=== PATIENT | male | born 1950 | race Caucasian/White ===

== ENCOUNTER 2024-04-27 06:24 | Day surgery (SDC) | payer BC, SELFPAY ==
[2024-04-27] VITALS (16 sets, daily range): BP systolic 120–146; BP diastolic 59–91; BMI 25.7
[2024-04-27] MEDS: NSS 230 ML IV (07:04)
--- NOTE | 2024-04-27 07:15 | ITS.CL.CATH ---
Key Cutter - Catheterization
Cardiac Catheterization
Procedure Report:
LEFT HEART CATHETERIZATION
Date of Procedure: April 27, 2024
Referring: Steph King
PROCEDURES:
1. Left heart catheterization, coronary angiogram.
2. Ultrasound-guided access
3. Physiologic functional assessment with IFR of mid left main
4. Intravascular ultrasound assessment of the mid left main
5. Physiologic functional assessment with IFR of ostial second diagonal
6. Physiologic functional assessment with IFR of ostial left circumflex
INDICATION: Curt is a 73-year-old gentleman with past medical history of hyperlipidemia, former smoker, quit 10 years ago, coronary artery disease status post PCI to RCA in May 2022 with IFR negative mid left main 40 to 50% stenosis and moderate
disease in a dual LAD system with 2 diagonals who had 1 episode of significant dyspnea on exertion while climbing uphill few weeks ago and is now being referred for left heart catheterization to rule out obstructive CAD. He has been maintained on
dual antiplatelet therapy with daily baby aspirin and Plavix which she continues and is tolerating well. Most recent echocardiogram from June, with normal biventricular function without regional wall motion abnormalities, LVEF of 60 to 65%.
ACCESS: Right radial artery
HEMODYNAMICS : (mmHg)
AO (s/d) : 96/51
LV (s/d) : 96/4
LVEDP : 15
CORONARY FINDINGS
DOMINANCE: Right
LEFT MAIN: The left main artery is a large-caliber vessel which gives rise to the left anterior descending artery and the left circumflex artery. There is a 60 to 70% stenosis in the mid portion which was negative by IFR but using IVUS imaging, the
minimal luminal area measures less than 6 mm2 (4.3 mm�)
LEFT ANTERIOR DESCENDING: The left anterior descending artery is densely calcified and medium in caliber giving rise to 2 diagonal branches. The first diagonal branch is a small to medium size vessel with mild diffuse atherosclerotic plaque. The
second diagonal branch is a large branching vessel that parallels the true LAD and a dual LAD system. The second diagonal gives rise to 2 lateral branches. The distal LAD becomes a relatively small vessel after giving rise to a large septal
primary counselor. There is a eccentric 80% lesion in the ostium of the second diagonal. The lower branch just after the takeoff of the first small caliber lateral branch is diffusely disease and moderately calcified with up to 60% stenosis.
CIRCUMFLEX: The left circumflex artery is a medium caliber vessel which gives rise to 1 major marginal branch. There is an eccentric ostial 50% stenosis which is IFR negative (iFR 0.97). Otherwise there is mild diffuse atherosclerotic plaque.
RIGHT CORONARY ARTERY: The right coronary artery is a large-caliber, dominant vessel which gives rise to the right posterior descending artery and a large posterolateral system. Previously placed proximal to mid RCA stent is widely patent with 30%
stenosis distal to the stent. There is an additional 50 to 60% lesion in the mid to distal RCA just proximal to the takeoff of the RPDA and the right posterolateral system. The distal right posterolateral system has stable 30% stenosis
HEMODYNAMIC ASSESSMENT OF THE MID LEFT MAIN, ostial left circumflex artery, ostial second diagonal WITH A DigitingO OMNI WIRE: The origin of the left coronary artery was cannulated with a 6 Korean JL 3.5 guide catheter. Intravenous heparin was
administered and the ACT was followed during the procedure. Two hundred micrograms of intracoronary nitroglycerin was given through the guide catheter. A [facility]ni wire was advanced to the guide catheter tip and normalized in the ascending
aorta with disengagement of the guide catheter. The guide catheter was then reengaged and Omni wire was then carefully manipulated across the stenosis in the mid left main with the iFR initially measuring below the ischemic threshold serially
measuring 0.84, 0.84 and 0.83. However upon pullback we noted that there were significant drift in the ascending aorta and therefore the only wire was normalized and we advanced with IFR now within normal range at 0.94, 0.94, above the ischemic
threshold. The Omni wire was then redirected into the obtuse marginal branch to assess moderate lesion in the ostial left circumflex artery which was negative at 0.97. The Omni wire was then pulled back to the guide catheter where the Pd/Pa
measured 1.0 confirming no baseline drift in pressure readings. The Omni wire was then redirected into the second diagonal branch with significant difficulty despite multiple passes with IFR measuring below the ischemic threshold at the ostial
second diagonal serially measuring at 0.85. The Omni wire was then pulled back to the guide catheter where the Pd/Pa measured 1.0 confirming no baseline drift in pressure readings.
Given concern for significant left main disease despite negative IFR, decision was made to proceed with intravascular ultrasound to further assess the mid left main stenosis. A 190 cm 0.014' BMW coronary wire was advanced with some difficulty into
the LAD and IVUS Kiana eye catheter was advanced over this with significant resistance moving past the calcified mid left main stenosis and subsequent failure and being able to do so. IVUS images were recorded at the furthest point where we could
advance the catheter. We then redirected the wire into the left circumflex artery and we attempted with same difficulty advancing past the mid left main calcified stenosis. Upon measuring the minimal luminal area there was significant calcified
lesion measured to be abnormal at less than 6.0mm2 (4.3 mm�)
SEDATION: 95 minutes of procedural sedation was utilized. An independent medical clerk was present to assist with and help manage the patient's level of consciousness and physiologic status.
RADIATION SUMMARY: Fluoro Time (min): 26.0, Dose (mGy): 1639.4, DAP (Gy.cm2) : 114.4
Closure Device: Vascular band over right radial artery, 10 cc every
CONCLUSIONS
1. Significant coronary artery disease involving midportion of the left main (MLA on IVUS of 4.3mm2) and a IFR positive eccentric 80% large ostial diagonal in a dual LAD system (iFR 0.85).
2. IFR negative ostial left circumflex artery eccentric 50% stenosis (iFR 0.97)
3. Previously placed proximal to mid RCA stent is widely patent with 30% stenosis distal to the stent. An additional 50 to 60% stenosis in the mid to distal RCA just proximal to the takeoff of the RPDA and the right posterolateral system.
4. Normal LVEDP.
RECOMMENDATIONS
1. Optimization of medical therapy for underlying significant coronary artery disease and aggressive management of cardiovascular risk factors.
2. Referral to CT surgery for evaluation for possible coronary artery bypass grafting with bypasses to LAD/D2, OM1, distal RCA/RPDA.
3. Eventual referral for outpatient cardiac rehab
Copy to: Steph King
Monica Belle MD, FACC, [facility]
[2024-04-27 08:14] LABS: ACT-LR - POC 339 Seconds (116-155)
[2024-04-27 08:40] LABS: ACT-LR - POC 287 Seconds (116-155)
[2024-04-27] MEDS: NORVASC 2.5 MG PO (09:47)
== END 2024-04-27 12:35 | disposition home or self-care (01) ==
LOC: CATH 06:24
PROVIDERS: ATTENDING PHYSICIAN Internal Medicine Interventional Cardiology; FAMILY PHYSICIAN Physician Assistant Medical; OTHER PHYSICIAN Internal Medicine Cardiovascular Disease
DX: I25.10 Atherosclerotic heart disease of native coronary artery without angina pectoris (principal); R06.09 Other forms of dyspnea; E78.00 Pure hypercholesterolemia, unspecified; K21.9 Gastro-esophageal reflux disease without esophagitis; Z95.5 Presence of coronary angioplasty implant and graft; F17.290 Nicotine dependence, other tobacco product, uncomplicated; Z79.82 Long term (current) use of aspirin; Z79.02 Long term (current) use of antithrombotics/antiplatelets
CPT/HCPCS: 92978; 99153; 99152; C1769; C1894; C1753; 85347; 93458; 93571; 93572; C1876; Q9967

== ENCOUNTER 2024-05-26 05:03 | Inpatient (IN) | payer MEDICARE, BC, SELFPAY ==
[2024-05-15 08:20] VITALS: BMI 24.5
[2024-05-15 09:36] LABS: % Basophils 0.7 % (0-2); % Eosinophils 3.7 % (0-6); % Immature Granulocytes 0.3 % (0-0.5); % Monocytes 7.1 % (1.7-9.3); % Neutrophils 64.2 % (42.2-75.2); Absolute Basophils 0.1 10^3/uL (0-0.2); Absolute Eosinophils 0.3 10^3/uL (0-0.7); Absolute Lymphocytes 1.6 10^3/uL (1.2-3.4); Absolute Monocytes 0.5 10^3/uL (0.1-0.6); Absolute Neutrophils 4.3 10^3/uL (1.4-6.5); Hematocrit 41.7 % (39.0-52.0); Hemoglobin 14.1 g/dL (13.0-18.0); Mean Corp Hgb Conc. 33.8 g/dL (33.0-37.0); Mean Corpuscular Hgb 29.9 pg (27.0-31.0); Mean Corpuscular Volume 88.5 fL (80.0-94.0); Mean Platelet Volume 9.8 fL (7.4-10.4); Nucleated Red Blood Cells % 0 % (-); Platelet Count 250 10^3/uL (130-400); Red Blood Cell Count 4.71 10^6/uL (4.70-6.10); Red Cell Dist. Width 12.3 % (11.5-14.5); Urine Albumin Negative (Neg - Trace); Urine Bilirubin Negative (Negative); Urine Character Clear (Clear); Urine Color Yellow; Urine Glucose Negative (Negative); Urine Ketone Negative (Negative); Urine Leukocyte Negative (Negative); Urine Nitrite Negative (Negative); Urine Occult Blood Negative (Negative); Urine Specific Gravity 1.015 (<1.030); Urine Urobilinogen Negative (Neg - 1+); White Blood Cell Count 6.7 10^3/uL (4.8-10.8)
[2024-05-15 09:46] LABS: APTT 30.9 Sec (23.4-35.0); INR 1.04; PT 13.4 Sec (11.4-14.6)
--- NOTE | 2024-05-15 09:53 | CM ---
Met with Mr. Abbott and his son in [facility] He states prior to admission he resides alone in a single story home at [facility]. He states he has five steps to enter the home. He states prior to admission he was independent with
ambulation and adls. He states he does not have any DME in the home. He states he has a prescription plan and uses [facility]. His son states he will be able to stay with him a few days when he goes home. Also his other son can spend the
night at his house for the first week. His sister resides in the same community so she can check on him also. The discharge plan is to return home with family support and a home visit by the Cardiothoracic Transitional Care Nurse when medically
stable.
We reviewed pre-op and post-op routines. We reviewed the shower instructions. He has the soap,written instruction and the Cardiothoracic Surgery Educational Booklet. We also reviewed restrictions including sternal precautions and driving
restrictions. We discussed a home visit by the Cardiothoracic Transitional Care Nurse. He is agreeable to a home visit.
[2024-05-15 09:57] LABS: ALT (SGPT) 31 U/L (0-50); AST (SGOT) 36 U/L (17-59); Albumin 4.3 g/dl (3.5-5.0); Alkaline Phosphatase 61 U/L (38-126); Blood Urea Nitrogen 15 mg/dl (9-20); Calcium 9.8 mg/dl (8.4-10.2); Carbon Dioxide 28 mmol/L (22-30); Chloride 105 mmol/L (98-107); Direct Bilirubin 0.2 mg/dl (0.0-0.4); Estimated Creatinine Clearance 75 ml/min; Glucose 96 mg/dl (70-99); Potassium 4.9 mmol/L (3.5-5.1); Sodium 140 mmol/L (135-145); Total Bilirubin 0.8 mg/dl (0.2-1.3); Total Protein 6.8 g/dl (6.3-8.2); eGFR > 60.00
[2024-05-15 10:27] LABS: Glycohemoglobin (HgbA1c) 5.6 % (4.0-5.6)
[2024-05-26] VITALS (62 sets, daily range): BP systolic 82–142; BP diastolic 48–80; BMI 24.4
[2024-05-26] MEDS: PROTONIX 40 MG PO (05:32)
[2024-05-26] MEDS: BACTROBAN 2% OINTMENT 1 APPLIC NASAL ×2 (05:33→20:15)
[2024-05-26] MEDS: MAGNESIUM OXIDE 500 MG PO (05:33)
[2024-05-26] MEDS: LOPRESSOR 25 MG PO (05:33)
--- NOTE | 2024-05-26 06:00 | PTCARENOTE ---
pt admitted into room 2265, VS and weight obtained. pt confirms 2 showers @ home and NPO since midnight. admission questions and med rec completed. clip prep and CHG wipes done. ABO drawn and sent. pre-op meds given. son @ bedside.
--- NOTE | 2024-05-26 06:17 | W.CVOR.SURPR ---
CVOR Surgeon Immed Pre Op
-
I have examined this patient prior to performance of the scheduled procedure.
The patient's condition is unchanged from the time of the dictated/written History and
Physical and the patient is able to undergo the scheduled procedure.
CABG +/- EDWIN E
[2024-05-26 07:25] LABS: Urine Albumin Trace (Neg - Trace); Urine Bilirubin Negative (Negative); Urine Character Clear (Clear); Urine Color Yellow; Urine Glucose Negative (Negative); Urine Ketone Negative (Negative); Urine Leukocyte Negative (Negative); Urine Nitrite Negative (Negative); Urine Occult Blood 1+ (Negative); Urine Urobilinogen 1+ (Neg - 1+)
[2024-05-26 07:27] LABS: ACT+ - POC 101 Seconds (82-134)
[2024-05-26 07:30] LABS: B.E. - POC -2.2 mmol/L; Glucose - POC 97 mg/dl (65-99); HCO3 - POC 22 mmol/L (21-29); Hematocrit - POC 35 % PCV (42-52); Hemodilution- POC No; Hemoglobin Calculated - POC 11.9; Ionized Calcium - POC 1.17 mmol/L (1.12-1.27); O2 Saturation %Calculated-POC 99.9 5 (92-96); PCO2 - POC 36 mmHg (35-45); PO2 - POC 333 mmHg (80-100); POC Comment PRE; Potassium - POC 3.4 mmol/L (3.6-5.0); Sodium - POC 145 mmol/L (135-145)
[2024-05-26 07:50] LABS: Urine Squamous Cell 0-2 /LPF (Few)
[2024-05-26 07:51] LABS: Urine White Cell 0-2 /HPF (0-5)
[2024-05-26 09:39] LABS: Glucose - POC 108 mg/dl (65-99); HCO3 - POC 26 mmol/L (21-29); Hematocrit - POC 31 % PCV (42-52); Hemodilution- POC Yes; Hemoglobin Calculated - POC 10.5; Ionized Calcium - POC 0.99 mmol/L (1.12-1.27); PCO2 - POC 33 mmHg (35-45); PO2 - POC 425 mmHg (80-100); POC Comment CPB; Potassium - POC 4.9 mmol/L (3.6-5.0); Sodium - POC 140 mmol/L (135-145); pH - POC 7.51 (7.35-7.45)
[2024-05-26 10:19] LABS: B.E. - POC 1.7 mmol/L; Glucose - POC 111 mg/dl (65-99); HCO3 - POC 25 mmol/L (21-29); Hematocrit - POC 30 % PCV (42-52); Hemodilution- POC Yes; Hemoglobin Calculated - POC 10.1; Ionized Calcium - POC 1.09 mmol/L (1.12-1.27); O2 Saturation %Calculated-POC 99.9 5 (92-96); PCO2 - POC 34 mmHg (35-45); PO2 - POC 262 mmHg (80-100); POC Comment REWARM; Potassium - POC 4.7 mmol/L (3.6-5.0); Sodium - POC 141 mmol/L (135-145); pH - POC 7.47 (7.35-7.45)
[2024-05-26 10:55] LABS: ACT+ - POC 104 Seconds (82-134)
[2024-05-26 10:56] LABS: B.E. - POC 1.3 mmol/L; Glucose - POC 119 mg/dl (65-99); HCO3 - POC 25 mmol/L (21-29); Hematocrit - POC 29 % PCV (42-52); Hemodilution- POC Yes; Ionized Calcium - POC 1.08 mmol/L (1.12-1.27); O2 Saturation %Calculated-POC 99.9 5 (92-96); PCO2 - POC 36 mmHg (35-45); PO2 - POC 264 mmHg (80-100); Potassium - POC 4.7 mmol/L (3.6-5.0); Sodium - POC 143 mmol/L (135-145); pH - POC 7.45 (7.35-7.45)
[2024-05-26 10:58] LABS: B.E. - POC -2.2 mmol/L; Glucose - POC 102 mg/dl (65-99); HCO3 - POC 22 mmol/L (21-29); Hematocrit - POC 27 % PCV (42-52); Hemodilution- POC Yes; Hemoglobin Calculated - POC 9.2; O2 Saturation %Calculated-POC 99.8 5 (92-96); PCO2 - POC 33 mmHg (35-45); PO2 - POC 210 mmHg (80-100); POC Comment POST; Potassium - POC 3.9 mmol/L (3.6-5.0); Sodium - POC 145 mmol/L (135-145); pH - POC 7.43 (7.35-7.45)
[2024-05-26 11:19] LABS: ACT+ - POC > 1003 Seconds (82-134)
[2024-05-26 11:19] LABS: ACT+ - POC > 1003 Seconds (82-134)
[2024-05-26 11:19] LABS: ACT+ - POC > 1003 Seconds (82-134)
--- NOTE | 2024-05-26 11:37 | W.PN.CT.SURG ---
CT Surgery Operative Note
-
CARDIAC SURGERY OPERATIVE REPORT
Preoperative Diagnosis: Multivessel Coronary Artery Disease with shortness of breath and fatigue, anginal equivalent
Postoperative Diagnosis: Same
Procedure(s) Performed:
1. Standard sternotomy with aortic and right atrial cannulation
2. Coronary artery bypass grafting x 4 (In situ SIMMONS to LAD sequential to distal bifurcation�diagonal, Ao to RSVG to OM, Ao to RSVG to distal RCA)
3. Small segment of the JOE harvested
4. Endoscopic vein harvesting of left lower extremity
5. Transesophageal echocardiography
6. Placement of temporary ventricular pacing wire
Date of Surgery: 05/26/2024
Comorbidities:
1. Multivessel coronary artery disease
2. Hyperlipidemia
3. Hypertension
4. Former smoker
5. GERD
6. History of COVID-19 and pneumonia
Attending Surgeon: Carl Gallardo MD, MS
Assistants: Tiffani Petty PA-C (present and necessary to web production assistant, retraction, suction, exposure, suture management, and wound closure under my direction)
Anesthesiology: Marcos Zheng MD and Carolann Ibanez CRNA
Scrub and Circulating RNs: Christopher Weston, JOANA, Nayeli Hopper RN
Lithographer Apprentice: Valerie Burroughs CCP
Anesthesia: GETA
EBL: per perfusion records
Products: None
CPB Time: 96 minutes
Aortic Cross Clamp Time: 81 minutes
Indication(s) for Procedures: This is a 73-year-old male with significant coronary disease with IVUS proven mid left main and LAD disease. He also presented with anginal equivalent symptoms. He was offered coronary artery revascularization after
reviewing his STS score. Due to the distal bifurcation with LAD and to a diagonal branch, the plan is to sequential the graft to the distal portion. He accepted the risk for surgery and so we proceeded.
Conduit(s) Quality:
SIMMONS -excellent/good quality visual flow in the distal branch as well as the midportion of the LAD after removal of the bulldog clamp
RSVG -good/some thickening of the distal end however overall good quality with relative uniformity
Target(s) Quality:
RCA -excellent/even though it was heavily calcified, lumen was able to be identified. Had at least 60 cc a minute of flow at a pressure of 80 mmHg with test dosing of antegrade
OM -excellent/also heavily calcified however there was at least 60 cc a minute of flow at a pressure of 9200 mmHg with test dosing of antegrade
mLAD and dLAD - Good / smaller target, but able to accomodate a 1.5mm probe. Good visual flow in the distal branch as well as the main LAD proper with release of the bull dog. The SIMMONS was used as a sequential graft at the mid portion to the distal
diagonal branch
Findings: His left ventricular ejection fraction preoperatively was 60% with no regional wall motion abnormalities. He had no significant valvular disease. EF after surgery remained the same at 60% with no new regional wall motion abnormalities.
The SIMMONS was harvested in a skeletonized fashion just past the bifurcation. I also preemptively harvested a very small segment of the JOE in case the SIMMONS was unable to reach the distal diagonal branch. Following bypass grafting, test dose
cardioplegia was given down each distal and confirmed patency and hemostasis. Each distal was probed both proximally and distally to confirm disease and patency, respectively. No products were given, no inotropes were used. No Imlay was placed. He
was in sinus rhythm and did not require any pacing.
Description of Procedure: The patient was taken to the operating room. Their identity and procedure to be performed were verified and they were positioned supine on the operating table. Induction via general anesthesia with endotracheal intubation
was performed and central venous access and arterial monitoring were inserted. A preoperative transesophageal echocardiogram was performed to assess cardiac function and valvular function. The patient was then prepped and draped from chin to feet in
a sterile fashion. A preoperative time-out was performed with all members of the team present. A midline chest incision was performed along with median sternotomy. Simultaneous endoscopic access of the left lower extremity for saphenous vein harvest
was obtained along with administration of an initial 5,000 units of IV heparin. A RulTract sternal retractor was positioned to exposure the left internal mammary bed. The mammary was harvested and found to have good flow. A bulldog clamp was applied
to the distal end of the mammary after dividing it. It was wrapped in a papaverine soaked RayTec and replaced back into the left hemithorax. I then replaced the Rultract retractor at the right hemisternum and harvested a very small 3.5 cm segment
of JOE in case needed to do a composite graft to the distal diagonal branch. The RulTract was exchanged for a median sternal retractor. The innominate vein was isolated. Full heparinization was given (a total of 45,000 units). We created a
pericardial well. The aortic cannulation site was chosen where it was soft, pliable, and free of calcium. Cannulation was performed with an arterial cannula in the ascending aorta and a triple-stage venous cannula through the right atrial appendage.
The arterial cannula line had an appropriate bounce and correlating pressures with test dosing. Next, a root vent/antegrade cannula was inserted into the ascending aorta. The ACT was confirmed to be over 400 and retrograde autologous priming was
performed before commencing cardiopulmonary bypass. The pulmonary artery was away from the aorta to facilitate a clamp site. The aortic cross-clamp was placed after decreasing the flow on the bypass and mean arterial pressure. A total of
1.2L initial dose of antegrade Del-Nido cardioplegia solution was given and planned for re-dosing every 75 minutes as necessary. There was rapid electro-mechanical arrest of the heart at 300 cc of cardioplegia. The left ventricle was observed for
distention on echocardiogram and manual palpation. Cold slush was placed into a sponge and topically on the RV while we systemically cooled to 34 degrees centigrade.
I positioned the heart to expose the distal right coronary. A [place] blade was used to expose the coronary and perform the arteriotomy. Coronary Farah scissors were used to enlarge the incision. The saphenous vein was trimmed and beveled to an
appropriate size. The distal anastomosis was performed using 7-0 prolene in an end-to-side fashion. Antegrade cardioplegia was administered into the graft. Appropriate hemostasis and flow were confirmed. The graft was measured for length to the
aorta and cut. A suitable site on the obtuse marginal was chosen. We dissected and prepared the distal target in a similar fashion. An end-to-side anastomosis was created with a 7-0 prolene. Antegrade cardioplegia was administered into the graft.
Appropriate hemostasis and flow were confirmed. The graft was measured for length to the aorta and cut. A suitable target on the distal left anterior descending was identified. We dissected and prepared the distal target in a similar fashion. We
retrieved the SIMMONS from the chest and created a pericardial opening while being cognizant of the phrenic nerve to facilitate the course of the mammary. The distal end of the mammary was prepped and beveled to size. We verified orientation and length
of the KELIN and found brisk flow. An end-to-side anastomosis was created with a 7-0 prolene. We temporarily released the bulldog clamp on the mammary to inspect flow. Perfusion to the LAD territory was visualized and hemostasis was confirmed. The
bull clamp was replaced on the mammary. I then identified a portion of the mid LAD. The underbelly of the SIMMONS graft was then dissected and a small arteriotomy was created and enlarged with Farah scissors. A small coronary arteriotomy was created
on the midportion of the LAD and an [id number] anastomosis was created with 8-0 Prolene. The bulldog was then removed allowing visual flow into the LAD proper. The heart was filled and the root was distended with antegrade cardioplegia to make
final assessment of graft length and orientation. We created to aortotomies using a #11 blade then a 4.0mm aortic punch. The proximal anastomoses were created in an end-to-side fashion using 6-0 prolene. At the the same time, we re-warmed to 36.5
degrees centigrade. The bulldog clamp was removed from the mammary. Temporary bipolar ventricular pacing wires were placed on the base of the right ventricle. The patient was placed in a trendelenburg position and flows on bypass were lowered. The
aortic cross clamp was removed and flows were slowly brought back up. A 30-gauge needle was used to de-air the vein grafts. All bypass grafts were inspected and were free from kinking or twisting. The distal and proximal anastomoses appeared
hemostatic. Once transesophageal echocardiography appeared satisfactory for de-airing, the flows were temporarily lowered for root vent removal. After verifying acceptable parameters, we initiated weaning from cardiopulmonary bypass. Once we were
off cardiopulmonary bypass, the venous cannula was clamped and removed. A test dose of protamine was administered and the patient was monitored for any adverse reaction before resuming protamine. Once half of the protamine dose was delivered, pump
suckers were turned off and the systolic blood pressure was lowered for aortic decannulation. The aortic cannula was removed and pursestrings were tied down. All cannulation sites were oversewn with a 4-0 prolene. The mammary bed was inspected and
hemostasis was confirmed. Once the mediastinum was hemostatic, 19Fr Rl drain was placed in the left and right pleural cavity and two 24Fr Rl drains were placed within the pericardium. The sternum was approximated with 4 #7 single and 3 #8
double stainless steel wires. Fascia was approximated with #1 vicryl suture. The subcutaneous, dermis and epidermis were closed in layers in a running fashion. The skin wound was cleansed and dressed.
All instrument, sponge, and needle counts were confirmed to be correct x 2 at the end of the operation. The patient was transferred to the cardiac intensive care unit in critical but stable condition.
I, Dr. Carl Gallardo, was present, scrubbed for, and performed all critical elements of this procedure.
Carl Gallardo MD, MS
Cardiothoracic Surgeon
[facility]
This operative dictation was created using the Discover[employer] dictation system. Please excuse any grammatical, typographical, or 'sound alike' errors
--- NOTE | 2024-05-26 11:52 | CON.INTV ---
Consultation
Consultation Request
Date/Time Consultation Requested: 05/26
Date/Time Consultation Performed: 05/26
Reason for Consultation: Critical care
Medical History
-
History of Present Illness:
History obtained from the chart, outpatient records as patient is currently intubated. 73-year-old male with history of hyperlipidemia, coronary disease with stent in May 2022 involving RCA, with coronary disease, developed increased shortness of
breath while climbing up a hill which had worsened. Cardiac catheterization revealed significant coronary disease involving left main, circumflex, distal RCA. LV function was normal. Patient was referred to CT surgery for bypass surgery, which he
underwent successfully 05/26/2024. We are asked to help from critical care standpoint
.
PMH: Hypertension, hyperlipidemia, coronary disease with prior RCA stent 2021, GERD, mild interstitial disease, history of COVID infection
Past Medical History
Past Medical History: None (See above)
Past Surgical History: None ( see above)
Social History
Tobacco: Former Smoker ([id number], quit 2013)
Alcohol: Occasional
Drug: None
Personal: ( from COVID February 2021)
Living: Alone
Employment: Retired (Works for [employer])
Family History
Family History: Other (Father with [facility], mother at age 82, lung cancer. 2 sons healthy)
Allergies / Home Medications
Allergies
Allergy/AdvReac Type Severity Reaction Status Date / Time
No Known Allergies Allergy Verified 05/12/24 09:45
Home Medications
�Medication �Instructions �Recorded �Confirmed �Last Taken �Type
multivitamin-ferrous 1 ea PO DAILY Supplement 02/25/21 05/26/24 05/16/24 08:00 History
fumarate-folic acid 18 mg-400 mcg
tablet (Centrum)
metoprolol succinate 25 mg 12.5 mg PO DAILY Heart 06/21/22 05/26/24 05/25/24 08:00 History
tablet,extended release 24 hr disease/condition
omega-3 fatty acids-fish oil 360 1 cap PO DAILY Supplement 06/21/22 05/26/24 05/16/24 08:00 History
mg-1,200 mg capsule (Fish Oil)
clopidogrel 75 mg tablet 75 mg PO DAILY #90 tabs 06/22/22 05/26/24 04/27/24 05:00 Rx
atorvastatin 80 mg tablet 80 mg PO DAILY High Cholesterol 05/12/24 05/26/24 05/25/24 08:00 History
amlodipine 2.5 mg tablet 2.5 mg PO DAILY Blood Pressure 05/26/24 05/26/24 05/25/24 08:00 History
aspirin 81 mg tablet,delayed 81 mg PO DAILY Blood Clot 05/26/24 05/26/24 05/25/24 08:00 History
release Prevention/Tx
Review of Systems
-
Unable to Obtain full review of systems at this time due to: Patient Intubation
Vitals / Labs / Diagnostic Testing
Vital Signs
Temp Pulse Resp BP Pulse Ox
98.4 F 76 16 142/80 98
05/26/24 05:23 05/26/24 05:23 05/26/24 05:23 05/26/24 05:23 05/26/24 05:23
Diagnostic Testing:
Physical Exam
-
HEENT: Normocephalic, Anicteric and Other (Right IJ, left upper extremity A-line, chest tube)
Cardiovascular: S1/S2, Regular Rhythm, Murmur (n) and Rub (n)
Respiratory: Wheeze (n), Rales (n), Rhonchi (n) and Non-Labored Respirations
GI: Soft, Non Distended and Non Tender
Neurology: Other (Sedated)
Skin: Other (No clubbing, cyanosis) and Other (Left lower extremity bandage)
General: Comfortable
Assessment
-
73-year-old male with history of coronary disease prior RCA stent 2021, hypertension, distant tobacco history, developed progressive shortness of breath over the past month. Cardiac catheterization revealed left main disease, multivessel coronary
disease. Patient is status post CABG x 4 on 05/26 without complication. We are asked to help from critical care standpoint
S/p CABG x 4 on 05/26
Left main disease with multivessel disease per catheterization
Postoperative CALLI, normal biventricular function, no wall motion abnormalities
Progressive dyspnea x 3 weeks
Mild interstitial disease per CT chest
Conditions present prior to admission
Hypertension/hyperlipidemia
History of COVID February 2021
[id number] history of smoking, quit
Family history of lung cancer (mother)
Plan/recommendations
At this time, patient appears to be comfortable but critically ill
Remains on volume-cycled ventilation. Airway pressures adequate. Chest x-ray unremarkable. Chest exam clear
Remains on low-dose norepinephrine 2 to 4 mcg
Chest tube output minimal
Moving forward
Continue with management per CT surgery
Anticipate extubation later today
Patient with history of interstitial disease per prior imaging, mild subpleural disease
Suspect he will do fine from a respiratory standpoint
Postoperative EKG with
EKG with LAFB
Hemodynamics adequate
Cardiology following
Follow blood sugars, follow hemoglobin, chest tube output
Reviewed with critical care nursing
TCCT 31 min
--- NOTE | 2024-05-26 11:55 | PTCARENOTE ---
SDA for a sternotomy, on pump CABG x 4 utilizing SIMMONS and JOE and left SVG. No blood products intra op. Out of cvor around 1155am: usual lines no swan alejandro. MVO2 was 80. TEG indicated need for 25mg protamine and DDAVP shortly after arrival to
CVICU. Chest tubes x 4 (2 meds to 1 pleur evac/right and left pleural to 1 pleur evac.) and to -20cm wall suction. No significant dumping in the first hour. Levo/precedex/insulin gtt. K repleted. PEEP on vent turned to 8 with SIMV settings per
Gallardo. Temp epicardial v wire for back up at 50bpm.Left leg svg site dressing cdi. NSR with incomplete RBBB. See flowrecord for remaining assessments.
[2024-05-26] MEDS: ANCEF 10 IV ×2 (12:00)
[2024-05-26] MEDS: NSS 500 IV (12:00)
[2024-05-26 12:10] LABS: Glucose - Point of Care 111 mg/dl (70-99)
[2024-05-26 12:19] LABS: Hematocrit 32.2 % (39.0-52.0); Hemoglobin 11.3 g/dL (13.0-18.0); Platelet Count 165 10^3/uL (130-400)
[2024-05-26 12:32] LABS: B.E. -2.2 mmol/L; HCO3 23.2 mmol/L (21-28); Ionized Calcium 1.25 mMOL/L (1.15-1.33); PCO2 41 mmHg (35-48); PO2 184 mmHg (83-108); Potassium 3.7 mMOL/L (3.5-5.1); Sodium 140 mMOL/L (136-145); pH 7.36 (7.35-7.45)
[2024-05-26 12:34] LABS: INR 1.57; PT 18.6 Sec (11.4-14.6)
--- NOTE | 2024-05-26 12:34 | W.PN.CARDCBS ---
Addendum entered and electronically signed by Theo Holly MD 05/26/24 13:30:
I saw and examined the patient.
The Hospice Care Sales Consultant's note was reviewed and I agree with the note.
Comment: Briefly, 73-year-old man past medical history of multivessel CAD and interstitial lung disease who underwent CABG x [address] Gallardo earlier today
Currently patient remains intubated and sedated in the CVICU, requiring norepinephrine for pressor support
Warm and well-perfused on exam
Filling pressures are reasonable based on invasive hemodynamics
Maintaining sinus rhythm on telemetry
Twelve-lead ECG postop with new left anterior fascicular block, would continue to monitor with serial ECGs
Agree with aspirin/Plavix, high intensity statin, beta-tarsha
We will continue to follow with you
Original Note:
Today's Communication / Plan
-
continue post op care
Impression / Plan
-
Primary Metabolic Specialist: Dr. King
Assessment:
CAD
s/p RCA PCI 05/2022
s/p CABG x4 In situ SIMMONS to LAD sequential to distal bifurcation�diagonal, Ao to RSVG to OM, Ao to RSVG to distal RCA 05/26/24
HLD
HTN
ILD
GERD
History of suspected long covid
Former smoker
ECHO 07/24/23: EF 60 to 65%, mild concentric LVH, trace MR, mild eccentric TR, PAP 32 mmHg
Plan:
-Status post CABG x4 on 05/26/24
-on lauro hugger
-remains intubated, sedated
-on levo @2, insulin @0.5
-EKG SR with incomplete RBBB and LAFB, new post op and chronic T wave inversion of lateral leads. follow
-hgb 11.3. plt 165K
-was on asa and plavix pre op. has prior RCA PCI in 2021
-continue post op care
-was on norvasc 2.5mg daily and toprol 12.5mg daily prior to admission
-d/w nursing
Progress Note - Metabolic Specialist
Subjective
Date of Service: May 26, 2024
intubated, sedated
Objective
Labs:
Labs
Hgb 11.3 g/dL (13.0-18.0) L 05/26/24 12:08
Hct 32.2 % (39.0-52.0) L 05/26/24 12:08
Plt Count 165 10^3/uL (130-400) 05/26/24 12:08
PT 13.4 Sec (11.4-14.6) 05/15/24 08:17
INR 1.04 05/15/24 08:17
APTT 30.9 Sec (23.4-35.0) 05/15/24 08:17
Sodium 140 mmol/L (135-145) 05/15/24 08:17
Potassium 4.9 mmol/L (3.5-5.1) 05/15/24 08:17
BUN 15 mg/dl (9-20) 05/15/24 08:17
Creatinine 0.9 mg/dL (0.7-1.3) 05/15/24 08:17
Glucose 96 mg/dl (70-99) 05/15/24 08:17
Vital Signs and I&O:
Vital Signs
Temp Pulse Resp BP Pulse Ox
98.4 F 64 0 142/80 97
05/26/24 05:23 05/26/24 12:15 05/26/24 12:15 05/26/24 05:23 05/26/24 12:15
Vital Signs
Temp Pulse Resp BP Pulse Ox
98.4 F 64 0 142/80 97
05/26/24 05:23 05/26/24 12:15 05/26/24 12:15 05/26/24 05:23 05/26/24 12:15
Physical Exam
Physical Exam
GEN: No distress, intubated, sedated
HEENT: supple, mmm
LUNGS: CTA B/L, no wheezes/rales
CV: Reg, S1/S2, no murmur
EXT: No cyanosis, clubbing, edema
NEURO: sedated
SKIN: Warm, pink, dry. No rash. Sternotomy incision c/d/i. CTs in place
[2024-05-26 12:35] LABS: APTT 32.2 Sec (23.4-35.0); Blood Urea Nitrogen 15 mg/dl (9-20); Estimated Creatinine Clearance 82 ml/min; Glucose 103 mg/dl (70-99); Magnesium 3.2 mg/dl (1.6-2.3)
[2024-05-26 12:36] LABS: Mixed Venous O2 Saturation 80.4 %
[2024-05-26] MEDS: LR 250 IV ×4 (12:45→17:15)
[2024-05-26] MEDS: KCL 50 IV ×2 (12:58→13:51)
[2024-05-26] MEDS: PROTAMINE 25 MG IV (13:01)
[2024-05-26] MEDS: DDAVP 55 MCG IV (13:06)
[2024-05-26 13:30] LABS: Glucose - Point of Care 129 mg/dl (70-99)
[2024-05-26] MEDS: LIPITOR PO (13:38)
[2024-05-26] MEDS: NEURONTIN PO ×2 (13:38→17:31)
[2024-05-26] MEDS: TYLENOL PO (13:39)
[2024-05-26] MEDS: THERAGRAN PO (13:39)
[2024-05-26 14:20] LABS: Glucose - Point of Care 159 mg/dl (70-99)
--- NOTE | 2024-05-26 14:30 | CM ---
Chart reviewed. Patient is in the OR today. Patient is independent of ADLS, lives alone in a [address] [place] [address], 0 MESHA, 0 DME. Patient with a supportive family. Patient's son will stay with the patient the first week and patient's
sister also lives in the same community to check on the patient. Plan is for the patient to return home with CT Transitional RN. CM to follow
--- NOTE | 2024-05-26 15:22 | PTCARENOTE ---
Followed simple commands and moving all extremities x 4 with equal bilateral strength. Nods head no to pain. CPAP vent wean initiated and PEEP reduced to 5. NSR . CT surgical CONTAMINATED LAND CONSULTANT Mery updated. New orders noted. Will obtain all lab work and ABG at
4pm and extubate if ok.
[2024-05-26 15:26] LABS: Glucose - Point of Care 106 mg/dl (70-99)
[2024-05-26 16:19] LABS: B.E. -2.8 mmol/L; HCO3 23.2 mmol/L (21-28); Ionized Calcium 1.22 mMOL/L (1.15-1.33); PCO2 44 mmHg (35-48); PO2 176 mmHg (83-108); Potassium 4.5 mMOL/L (3.5-5.1); pH 7.33 (7.35-7.45)
[2024-05-26] MEDS: OFIRMEV 100 IV (16:20)
--- NOTE | 2024-05-26 16:25 | PTCARENOTE ---
No acute changes. patient following simple commands and moving all extremeties. ABG results to CT surgery and CT surgery PETROPHYSICAL ENGINEER Mery, updated with same. New orders received. Patient extubated to 6L nasal canula ttitrated down to 4l/min. See flowrecord
for remaining assessments.
[2024-05-26 16:26] LABS: Glucose - Point of Care 94 mg/dl (70-99)
[2024-05-26 16:28] LABS: Hematocrit 32.3 % (39.0-52.0); Hemoglobin 11.6 g/dL (13.0-18.0); Platelet Count 192 10^3/uL (130-400)
--- NOTE | 2024-05-26 16:31 | RESPNOTE ---
patient extubated at 1625 without incident. 97% on 6L.
--- NOTE | 2024-05-26 17:15 | PTCARENOTE ---
Unable to titrate levo down after extubation. Mery, LEGAL TRANSCRIPTIONIST aware of same: give remaining bolus of LR 250ml. NSR. Patient denies nausea. Will give ASA po at 6pm.
[2024-05-26] MEDS: PACERONE PO (17:42)
[2024-05-26] MEDS: LOW STRENGTH ASPIRIN 81 MG PO (17:43)
[2024-05-26] MEDS: ANCEF 5 IV (17:50)
[2024-05-26 18:14] LABS: Glucose - Point of Care 102 mg/dl (70-99)
[2024-05-26] MEDS: SENOKOT-S 1 TABLET PO (20:14)
--- NOTE | 2024-05-26 20:15 | PTCARENOTE ---
Assumed care of patient at 1900. Patient found in bed at time of assessment. Patient is Aox4, follows commands appropriately, moves all extremities. Lung sounds are diminished through, saO2 is 97% on 2L, patient has CTx4: R/L pleural and 2xmeds with
red sanguineous drainage. Heart sounds have a regular rate and rhythm, patient is SR with occasional PACs on the monitor, there is a slight rub present on auscultation. Patient has weak but palpable dorsalis pedis pulses and palpable radial pulses.
There is +1 BLE edema and trace hand edema present. Patient has hypoactive BS throughout all quadrants. There is a nelson in place draining clear yellow urine. Patient has a sternal incision approx with surg adhesive ROOF FOREMAN, L groin puncture approx with
surg adhesive BRENDAN, and LLE incision approx with surg adhesive wrapped with EZIO. Patient has 4x4 dry gauze dressing over CT wounds. Patient has R IJ cordis with slic receiving KVO, L radial A line, and L hand 18G PIV. Patient has the following gtts:
Insulin@1.3, Levo@4. Vital signs as follows: T-97.9 P-66 BP-120/56 MAP-79 RR-15 CVP-2.
[2024-05-26 20:25] LABS: Glucose - Point of Care 98 mg/dl (70-99)
[2024-05-26 22:32] LABS: Glucose - Point of Care 96 mg/dl (70-99)
[2024-05-26] MEDS: PACERONE 200 MG PO (22:33)
[2024-05-26] MEDS: NEURONTIN 100 MG PO (22:33)
[2024-05-26] MEDS: TYLENOL 1000 MG PO (22:33)
[2024-05-27] VITALS (55 sets, daily range): BP systolic 57–126; BP diastolic 34–91; PULSE 69; O2SAT 99; BMI 25.6
--- NOTE | 2024-05-27 00:10 | PTCARENOTE ---
Patient reassessed. VSS. Attempted Levo taper, but MAP<65 returned to 4mcg and MAP>65 again. Remains SR/SB on the monitor. Patient has no complaints at this time.
[2024-05-27 00:36] LABS: Glucose - Point of Care 97 mg/dl (70-99)
[2024-05-27 01:35] LABS: Glucose - Point of Care 101 mg/dl (70-99)
[2024-05-27 02:34] LABS: Glucose - Point of Care 92 mg/dl (70-99)
[2024-05-27] MEDS: ANCEF 5 IV ×2 (03:27→10:36)
[2024-05-27 03:30] LABS: Glucose - Point of Care 90 mg/dl (70-99)
[2024-05-27 03:33] LABS: Hematocrit 29.5 % (39.0-52.0); Hemoglobin 10.5 g/dL (13.0-18.0); Mean Corp Hgb Conc. 35.6 g/dL (33.0-37.0); Mean Corpuscular Volume 84.3 fL (80.0-94.0); Platelet Count 181 10^3/uL (130-400); Red Cell Dist. Width 12.5 % (11.5-14.5); White Blood Cell Count 13.6 10^3/uL (4.8-10.8)
[2024-05-27 03:55] LABS: Blood Urea Nitrogen 20 mg/dl (9-20); Calcium 7.7 mg/dl (8.4-10.2); Carbon Dioxide 19 mmol/L (22-30); Chloride 114 mmol/L (98-107); Estimated Creatinine Clearance 94 ml/min; Glucose 85 mg/dl (70-99); Magnesium 2.1 mg/dl (1.6-2.3); Potassium 4.2 mmol/L (3.5-5.1); Sodium 139 mmol/L (135-145); eGFR > 60.00
[2024-05-27 04:37] LABS: Glucose - Point of Care 91 mg/dl (70-99)
--- NOTE | 2024-05-27 05:14 | W.PN.CT ---
Today's Communication / Plan
-
-pod #1
-no issues overnight
-drips: insulin, Levo 4
-CT output: 2 meds 50/230, b/l pleur 60/180 in 12/24 hrs
-abnormal am ECG, ST elevation V1-V4, + rub - follow
-wean off Levo, then d/c a-line
-d/c slic
-d/c Caldwell
-d/c insulin
-current meds (ASA, Plavix, Lopressor, Amio, Protonix, Lipitor)
-encourage IS, OOB
Assessment / Plan
-
- Mv-CAD - s/p CABG x4 (In situ SIMMONS to LAD sequential to distal bifurcation�diagonal, Ao to RSVG to OM, Ao to RSVG to distal RCA) on 05/26/[address] Gallardo, pod #1
- Intraop CALLI: LVEF 60% pre and post, no wma, no significant valvular dz
- CAD with RCA stent 2021
- Hyperlipidemia
- Hypertension
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
- Former smoker, uses e-cigarettes
- Mild chronic interstitial lung dz - follows with Dr. Vail (last CT 05/15/24)
- GERD
- History of COVID-19 and pneumonia
- Acute postop blood loss anemia - stable without transfusion
- Acute postop atelectasis
- Acute postop hypovolemia with subsequent hypervolemia
- Acute postop brief 7 beat SVT (asymptomatic)
Discussed patient care with: Nursing and Care Team
Subjective
Procedure
- s/p CABG x4 (In situ SIMMONS to LAD sequential to distal bifurcation�diagonal, Ao to RSVG to OM, Ao to RSVG to distal RCA) on 05/26/[address] Gallardo
-
Date of Service: May 27, 2024
Objective Data
-
PT 18.6 Sec (11.4-14.6) H 05/26/24 12:08
INR 1.57 05/26/24 12:08
APTT 32.2 Sec (23.4-35.0) 05/26/24 12:08
Vital Signs
Vital Signs
Temp Pulse Resp BP Pulse Ox
97.7 F 57 10 101/59 99
05/26/24 23:05 05/26/24 23:15 05/26/24 23:15 05/26/24 23:15 05/26/24 23:05
CT Intake/Output/Weight
05/26/24 05/26/24 05/27/24
06:59 18:59 06:59
Intake Total 1535.0 / 1703.1 168.1 / 1703.1
Output Total 975 / 1240 265 / 1240
Balance 560.0 / 463.1 -96.9 / 463.1
SaO2: 99
Physical Exam
-
General: Awake and AOx3
Cardiovascular: Regular rate & rhythm, No Murmurs and Rub
Respiratory: Decreased Breath Sounds
Sternum: Stable
Incision: Clean and Intact
Extremities: Other (trace edema b/l, DPs 1+ b/l)
Data Reviewed
-
Lab Results: Results Reviewed
Medications: Active Meds Reviewed
Chest X-Ray: Report Reviewed and Image Reviewed
ECG: Report Reviewed and Image Reviewed
--- NOTE | 2024-05-27 05:30 | PTCARENOTE ---
Patient reassessed. VSS. AM labs obtained. Orders received to obtain EKG and administer calcium repletion. AM hygiene care provided. AM EKG obtained.
[2024-05-27 05:59] LABS: HCO3 17.5 mmol/L (21-28); Ionized Calcium 0.99 mMOL/L (1.15-1.33); O2 Saturation % 99.8 % (94-98); PCO2 31 mmHg (35-48); PO2 130 mmHg (83-108); pH 7.36 (7.35-7.45)
[2024-05-27] MEDS: CALCIUM CHLORIDE 10% SYRINGE 60 MG IV (06:01)
[2024-05-27] MEDS: SODIUM BICARBONATE 150 MEQ IV (06:25)
[2024-05-27] MEDS: TYLENOL 1000 MG PO ×3 (06:28→20:13)
[2024-05-27 06:33] LABS: Glucose - Point of Care 114 mg/dl (70-99)
--- NOTE | 2024-05-27 07:13 | W.PN.INTV ---
Today's Communication / Plan
Recommendations
Continue fluids per CT surgery
Follow EKG
Remains on insulin drip
Antiplatelet therapy
Incentive spirometry, pain control
Once transferred to telemetry, we will sign off. Please call with questions
Assessment
-
73-year-old male with history of coronary disease prior RCA stent 2021, hypertension, distant tobacco history, developed progressive shortness of breath over the past month. Cardiac catheterization revealed left main disease, multivessel coronary
disease. Patient is status post CABG x 4 on 05/26 without complication. We are asked to help from critical care standpoint
S/p CABG x 4 on 05/26
Left main disease with multivessel disease per catheterization
Postoperative CALLI, normal biventricular function, no wall motion abnormalities
Progressive dyspnea x 3 weeks
Mild interstitial disease per CT chest
Conditions present prior to admission
Hypertension/hyperlipidemia
History of COVID February 2021
[id number] history of smoking, quit
Family history of lung cancer (mother)
Plan/recommendations
At this time, patient appears to be comfortable
Remains on insulin drip. Mild splinting on exam noted.
Chest x-ray unremarkable. Chest tube remains in place
Moving forward
Continue with management per CT surgery
Fluid management per surgery, CVP low this morning
Norepinephrine weaned off
EKG noted. Followed by cardiology, repeat later today
Hemodynamics adequate
Cardiology following
Patient with history of interstitial disease per prior imaging, mild subpleural disease
Reviewed CT chest April 2024. No nodule
Can resume lung cancer screening April 2025
Follow blood sugars, follow hemoglobin, chest tube output
Reviewed with patient
Subjective Dataa
Subjective Data
Date of Service:
Date of Service: May 27, 2024
Subjective:
Patient extubated without difficulty. Presently sitting in chair, feels well. Has some mild incisional pain. Had some mild lightheadedness with positional changes. Appears to be in good spirits
Objective Data
Data Reviewed
Vital Signs / I&O / Oxygen:
Vital Signs
Temp Pulse Resp BP Pulse Ox
97.4 F 56 14 109/54 99
05/27/24 03:00 05/27/24 03:30 05/27/24 03:30 05/27/24 03:15 05/27/24 03:00
Intake and Output
05/26/24 05/27/24 05/28/24
06:59 06:59 06:59
Intake Total 1931.7 / 1931.7
Output Total 1580 / 1580
Balance 351.7 / 351.7
SaO2 [CPAP/PSV] 98
SaO2 [SIMV] 40
SaO2 99
Nasal Cannula flow liters per 2
minute
Physical Exam
General: Comfortable and Other (IJ, A-line)
HEENT: Normocephalic and Anicteric
Cardiovascular: S1-S2, Regular Rhythm and Murmur (n)
Respiratory: Wheeze (n), Crackles (n), Rhonchi (n), Chest Tube and Other (Splinting)
GI: Soft, Non Distended and Non Tender
Neurology: Awake, Alert and No Motor Deficits
Skin: Cyanosis (n), Jaundice (n) and Rash (n)
Labs/Micro/Reports
Lab Data
05/27/24 03:07
05/27/24 03:07
Laboratory Results
05/26/24 05/26/24 05/27/24
12:08 16:07 05:54
PT 18.6 H
INR 1.57
APTT 32.2
pH 7.36 7.33 L 7.36
pCO2 41 44 31 L
pO2 184 H 176 H 130 H
HCO3 23.2 23.2 17.5 L
O2 Delivery Level
--- NOTE | 2024-05-27 07:30 | PTCARENOTE ---
Received pt from nightshift RN; pt AAOx3 and resting comfortably in bed; NSR on monitor and VSS; + rub; Epicardial V wire set to back up VVI 40/2/2 and no pacing noted; RIJ cordis, left A-line and PIV x1 all lines leveled and zeroed; Levo and
Insulin infusing see flow sheet for details; Lungs diminished; IS to 750; CT x4 to -20 wall suction no air leak and no crepitus noted; hypoactive bowel sounds; Caldwell catheter removed by second shift supervisor RN pt DTV by 1210; palpable pulses throughout; +1
generalized edema noted; all surgical site C/D/I; see flow sheet for details.
--- NOTE | 2024-05-27 07:32 | PTCARENOTE ---
Orders received to administer 3 amps bicarb. Slic discontined. Caldwell discontinued. Patient's levo tapered to 3 mcg. Maintained on bedrest for now. Advised to resume CVP monitoring. Transduced off of cordis. No c/o pain or nausea
--- NOTE | 2024-05-27 08:12 | W.PN.ANS.POP ---
Anesthesia Post Operative
- Anesthesia Post Op Note
Vital Signs Stable-See Nursing Note: Yes
Airway Patent: Yes
Adequate Pain Control: Yes
Change in Mental Status: No
Current Postoperative Nausea & Vomiting: No
Anesthesia Complications: No
General Anesthetic Recall: No
Unplanned Admission: No
Post Op Hydration Adequate: Yes
--- NOTE | 2024-05-27 08:20 | PTCARENOTE ---
Left A-line with no blood return and poor wave form on monitor; updated CV RAIL BONDER, A-line removed and CVP also discontinued.
[2024-05-27] MEDS: LR 500 IV (08:33)
[2024-05-27 08:37] LABS: Glucose - Point of Care 124 mg/dl (70-99)
[2024-05-27] MEDS: BACTROBAN 2% OINTMENT 1 APPLIC NASAL ×2 (08:49→20:12)
[2024-05-27] MEDS: MAGNESIUM OXIDE 500 MG PO ×2 (08:50→20:12)
[2024-05-27] MEDS: LOW STRENGTH ASPIRIN 81 MG PO (08:50)
[2024-05-27] MEDS: SENOKOT-S 1 TABLET PO ×2 (08:50→20:13)
[2024-05-27] MEDS: PLAVIX 75 MG PO (08:50)
[2024-05-27] MEDS: VITAMIN C 500 MG PO (08:50)
[2024-05-27] MEDS: THERAGRAN 1 TABLET PO (08:50)
[2024-05-27] MEDS: PROTONIX 40 MG PO (08:50)
[2024-05-27] MEDS: LIPITOR 80 MG PO (08:50)
[2024-05-27] MEDS: FEOSOL 325 MG PO (08:50)
[2024-05-27] MEDS: NEURONTIN 100 MG PO ×3 (08:50→20:13)
[2024-05-27] MEDS: TORADOL 15 MG IV ×2 (08:51→20:12)
[2024-05-27] MEDS: LIDOCAINE 4% PATCH 1 PATCH TOPICAL (08:52)
[2024-05-27 09:01] LABS: Venous Blood Gas B.E. 4.5 mmol/L (-4 to +4); Venous Blood Gas HCO3 29.8 mmol/L (22-27); Venous Blood Gas pCO2 47 mmHg (35-48); Venous Blood Gas pH 7.41 (7.32-7.43); Venous Blood Gas pO2 113 mmHg (30-50)
[2024-05-27 09:02] LABS: Venous Blood Gas O2 Therapy RA
[2024-05-27 10:34] LABS: Glucose - Point of Care 131 mg/dl (70-99)
[2024-05-27] MEDS: NSS IV (10:35)
--- NOTE | 2024-05-27 10:48 | W.PN.CARDCBS ---
Addendum entered and electronically signed by Santiago Hatch MD 05/27/24 14:57:
I saw and examined the patient.
The HOOP COILER or PA's note was reviewed and I agree with the note.
Comment: General: Well developed, well nourished in NAD.
Neck: Supple, no JVD, HJR, carotids +2 B/L, no bruits bilaterally.
Heart: Non displaced PMI, RRR, no murmurs, No S3, S4, no rubs.
Lungs: Scattered rhonchi
Sternal dressings noted
Extremities: No clubbing, cyanosis or edema bilaterally.
Neuro: Grossly nonfocal, awake, alert and oriented x3.
Stable cardiology status status post CABG. Discussed with patient and family at bedside. Remains in sinus rhythm. Remains with chest tubes.
Original Note:
Today's Communication / Plan
-
Continue postoperative care
Follow blood pressure trends
Repeat EKG this afternoon
Continue aspirin Plavix
Impression / Plan
-
Primary Carton Machine Operator: Dr. King
Assessment:
CAD
s/p RCA PCI 05/2022
s/p CABG x4 In situ SIMMONS to LAD sequential to distal bifurcation�diagonal, Ao to RSVG to OM, Ao to RSVG to distal RCA 05/26/24
HLD
HTN
ILD
GERD
History of suspected long covid
Former smoker
ECHO 07/24/23: EF 60 to 65%, mild concentric LVH, trace MR, mild eccentric TR, PAP 32 mmHg
Plan:
-Status post CABG x4 on 05/26/24
-off pressors
-on RA
-had some hypotension, 'woozy' feeling with standing from chair this morning. now improved. BB/amio on hold this morning, brief marianela however nothing sustained
-receiving LR bolus as felt to be dry
-Initial EKG postop with incomplete right bundle branch block and left anterior fascicular block. EKG today sinus bradycardia with nonspecific T wave abnormality. follow
-hgb 10.5. plt 181K. has prior RCA PCI in 2021. on asa, plavix
-continue post op care
-was on norvasc 2.5mg daily and toprol 12.5mg daily prior to admission
-d/w nursing
-d/w patient and family at bedside
Progress Note - Carton Machine Operator
Subjective
Date of Service: May 27, 2024
Feeling well at present. Reports some discomfort with deep breaths from chest tubes
Objective
Labs:
05/27/24 03:07
05/27/24 03:07
Labs
Hgb 10.5 g/dL (13.0-18.0) L 05/27/24 03:07
Hct 29.5 % (39.0-52.0) L 05/27/24 03:07
Plt Count 181 10^3/uL (130-400) 05/27/24 03:07
PT 18.6 Sec (11.4-14.6) H 05/26/24 12:08
INR 1.57 05/26/24 12:08
APTT 32.2 Sec (23.4-35.0) 05/26/24 12:08
Sodium 139 mmol/L (135-145) 05/27/24 03:07
Potassium 4.2 mmol/L (3.5-5.1) 05/27/24 03:07
BUN 20 mg/dl (9-20) 05/27/24 03:07
Creatinine 0.7 mg/dL (0.7-1.3) 05/27/24 03:07
Glucose 85 mg/dl (70-99) 05/27/24 03:07
Vital Signs and I&O:
Vital Signs
Temp Pulse Resp BP Pulse Ox
97.4 F 67 18 105/59 94
05/27/24 03:00 05/27/24 10:30 05/27/24 09:09 05/27/24 10:10 05/27/24 10:00
Vital Signs
Temp Pulse Resp BP Pulse Ox
97.4 F 67 18 105/59 94
05/27/24 03:00 05/27/24 10:30 05/27/24 09:09 05/27/24 10:10 05/27/24 10:00
Intake & Output
05/25/24 05/26/24 05/27/24 05/28/24
07:59 07:59 07:59 07:59
Intake Total 1942.1 / 1942.1 152.4 / 152.4
Output Total 1605 / 1605 80 / 80
Balance 337.1 / 337.1 72.4 / 72.4
Physical Exam
Physical Exam
GEN: No distress, awake, alert, oriented x3. Sitting in chair
HEENT: supple, anicteric, mmm, EOMI
LUNGS: Diminished breath sounds bilaterally, no wheezes
CV: Reg, S1/S2, no murmur
EXT: No cyanosis, clubbing. Trace edema of bilateral lower extremity
NEURO: Gross non-focal
SKIN: Warm, pink, dry. No rash. Sternotomy incision C/D/I. Chest tubes in place. Temp wire in place
[2024-05-27] MEDS: ROXICODONE 2.5 MG PO (11:19)
[2024-05-27] MEDS: LOPRESSOR PO (11:39)
[2024-05-27] MEDS: PACERONE PO (11:40)
--- NOTE | 2024-05-27 11:40 | CM ---
Chart reviewed. Patient OOB sitting in the chair with family at bedside. Patient is independent of ADLS, lives alone in a [address] at [facility], 5 MESHA, 0 DME. Patient's son is going to be staying with him for a few days after discharge.
Patient's sister also lives in the community and will be checking in on the patient. Plan is for the patient to return home with CT Transitional RN. CM to follow
[2024-05-27 12:19] LABS: Glucose - Point of Care 210 mg/dl (70-99)
--- NOTE | 2024-05-27 12:35 | PTCARENOTE ---
Assessment unchanged; NSR on monitor and VSS; pt resting comfortably in chair with family at bedside.
[2024-05-27] MEDS: FERRLECIT 110 MG IV (13:11)
[2024-05-27 13:17] LABS: Glucose - Point of Care 163 mg/dl (70-99)
[2024-05-27] MEDS: FLOMAX 0.400000000000000022 MG PO (16:02)
[2024-05-27] MEDS: PACERONE 200 MG PO ×2 (16:02→20:13)
--- NOTE | 2024-05-27 16:36 | PTCARENOTE ---
NSR on monitor and VSS; assessment unchanged; pt resting comfortably in bed.
--- NOTE | 2024-05-27 20:00 | PTCARENOTE ---
assumed care of pt from previous RN. pt A&Ox4, resting in bed at time of assessment. SR on tele-monitor, HR 70s. pericardial friction rub on auscultation. temp epicardial v-wires insulated. palpable peripheral pulses. trace edema noted in b/l lower
extremities. CTx4 (mediastinal x2, R & L pleural) to -20cm wall suction, draining sanguineous drainage. POX 89% on RA, pt placed on 2 L NC, POX 96-97% on 2 L NC. pt due to void. all surgical sites stable, CDI. R IJ cordis w/ KVO. PIV intact. see
worklist for complete nursing assessment, interventions, VS, and I&Os.
[2024-05-27] MEDS: LOPRESSOR 12.5 MG PO (20:12)
[2024-05-28] VITALS (20 sets, daily range): BP systolic 87–120; BP diastolic 49–72; BMI 26.1
--- NOTE | 2024-05-28 | PTCARENOTE ---
assessment remains unchanged. VSS. CT drainage WNL.
[2024-05-28 05:02] LABS: Hematocrit 26.6 % (39.0-52.0); Hemoglobin 9.2 g/dL (13.0-18.0); Mean Corp Hgb Conc. 34.6 g/dL (33.0-37.0); Mean Corpuscular Hgb 30.3 pg (27.0-31.0); Mean Corpuscular Volume 87.5 fL (80.0-94.0); Mean Platelet Volume 10.2 fL (7.4-10.4); Platelet Count 144 10^3/uL (130-400); Red Blood Cell Count 3.04 10^6/uL (4.70-6.10); Red Cell Dist. Width 12.3 % (11.5-14.5); White Blood Cell Count 8.3 10^3/uL (4.8-10.8)
[2024-05-28 05:32] LABS: Blood Urea Nitrogen 36 mg/dl (9-20); Calcium 8.2 mg/dl (8.4-10.2); Carbon Dioxide 31 mmol/L (22-30); Chloride 103 mmol/L (98-107); Estimated Creatinine Clearance 73 ml/min; Glucose 94 mg/dl (70-99); Magnesium 2.3 mg/dl (1.6-2.3); Sodium 135 mmol/L (135-145); eGFR > 60.00
[2024-05-28] MEDS: TYLENOL 1000 MG PO ×3 (06:09→20:53)
[2024-05-28] MEDS: TORADOL 15 MG IV (06:26)
--- NOTE | 2024-05-28 06:49 | W.PN.CT ---
Today's Communication / Plan
-
-pod #2
-no significant issues overnight
-urinary retention - improved with Flomax- monitor
-some hypotension 80s-90s, marianela 50s - will hold BB
-CT output: 2meds 40/150, 2 pleur 60/170 in 12/24 hrs
-current meds (ASA, Plavix, Lipiror, Amio, Protonix, Flomax, Feosol, Vit C)
-encourage IS, OOB
Assessment / Plan
-
- Mv-CAD - s/p CABG x4 (In situ SIMMONS to LAD sequential to distal bifurcation�diagonal, Ao to RSVG to OM, Ao to RSVG to distal RCA) on 05/26/[address] Gallardo, pod #2
- Intraop CALLI: LVEF 60% pre and post, no wma, no significant valvular dz
- CAD with RCA stent 2021
- Hyperlipidemia
- Hypertension
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
- Former smoker, uses e-cigarettes
- Mild chronic interstitial lung dz - follows with Dr. Vail (last CT 05/15/24)
- GERD
- History of COVID-19 and pneumonia
- Acute postop blood loss anemia - stable without transfusion
- Acute postop atelectasis
- Acute postop hypovolemia with subsequent hypervolemia
- Acute postop brief 7 beat SVT (asymptomatic)
- Acute postop urinary retention - improved with Flomax
Discussed patient care with: Nursing and Care Team
Subjective
Procedure
- s/p CABG x4 (In situ SIMMONS to LAD sequential to distal bifurcation�diagonal, Ao to RSVG to OM, Ao to RSVG to distal RCA) on 05/26/[address] Gallardo
-
Date of Service: May 28, 2024
Objective Data
-
PT 18.6 Sec (11.4-14.6) H 05/26/24 12:08
INR 1.57 05/26/24 12:08
APTT 32.2 Sec (23.4-35.0) 05/26/24 12:08
Vital Signs
Vital Signs
Temp Pulse Resp BP Pulse Ox
98.0 F 62 16 88/49 95
05/28/24 00:00 05/28/24 00:02 05/28/24 00:00 05/28/24 00:02 05/28/24 00:00
CT Intake/Output/Weight
05/27/24 05/27/24 05/28/24
06:59 18:59 06:59
Intake Total 396.7 / 1931.7 522.8 / 582.8 60 / 582.8
Output Total 605 / 1580 220 / 600 380 / 600
Balance -208.3 / 351.7 302.8 / -17.2 -320 / -17.2
SaO2: 95
Physical Exam
-
General: Awake and AOx3
Cardiovascular: Regular rate & rhythm, No Murmurs and Rub
Respiratory: Decreased Breath Sounds
Sternum: Stable
Incision: Clean, Dry and Intact
Extremities: Other (trace edema b/l)
Data Reviewed
-
Lab Results: Results Reviewed
Medications: Active Meds Reviewed
Chest X-Ray: Report Reviewed and Image Reviewed
ECG: Report Reviewed and Image Reviewed
--- NOTE | 2024-05-28 07:30 | PTCARENOTE ---
Received pt from overnight associate RN; Pt AAOx3 and resting comfortably in chair; NSR on monitor and hypotensive, calcium infusing per order and waiting for Albumin; Epicardial V wire insulated; RIJ Cordis and PIV x1 patent; lungs diminished; IS to 1250;
CT x4 to -20 wall suction no air leak and no crepitus noted; positive bowel sounds; pt voiding yellow urine; palpable pulses throughout; trace generalized edema; surgical sites C/D/I; see nursing documentation for further details.
[2024-05-28] MEDS: CALCIUM GLUCONATE 100 IV (07:35)
[2024-05-28] MEDS: LIPITOR 80 MG PO (08:31)
[2024-05-28] MEDS: NEURONTIN 100 MG PO ×3 (08:31→20:54)
[2024-05-28] MEDS: BACTROBAN 2% OINTMENT 1 APPLIC NASAL ×2 (08:31→19:50)
[2024-05-28] MEDS: SENOKOT-S 1 TABLET PO ×2 (08:31→19:49)
[2024-05-28] MEDS: LOW STRENGTH ASPIRIN 81 MG PO (08:32)
[2024-05-28] MEDS: MAGNESIUM OXIDE 500 MG PO ×2 (08:32→19:49)
[2024-05-28] MEDS: THERAGRAN 1 TABLET PO (08:32)
[2024-05-28] MEDS: VITAMIN C 500 MG PO (08:32)
[2024-05-28] MEDS: PACERONE 200 MG PO ×3 (08:32→20:53)
[2024-05-28] MEDS: FEOSOL 325 MG PO (08:32)
[2024-05-28] MEDS: PROTONIX 40 MG PO (08:32)
[2024-05-28] MEDS: FLEXBUMIN 100 IV ×3 (08:32→23:59)
[2024-05-28] MEDS: PLAVIX 75 MG PO (08:32)
[2024-05-28] MEDS: LIDOCAINE 4% PATCH TOPICAL (08:33)
--- NOTE | 2024-05-28 09:49 | PTCARENOTE ---
Epicardial V wire removed by CV MISSILEMAN.
--- NOTE | 2024-05-28 10:34 | W.PN.CARDCBS ---
Today's Communication / Plan
-
Stable cardiology status status post CABG
Impression / Plan
-
Primary Pattern Chart Writer: Dr. King
Assessment:
CAD
s/p RCA PCI 05/2022
s/p CABG x4 In situ SIMMONS to LAD sequential to distal bifurcation�diagonal, Ao to RSVG to OM, Ao to RSVG to distal RCA 05/26/24
HLD
HTN
ILD
GERD
History of suspected long covid
Former smoker
ECHO 07/24/23: EF 60 to 65%, mild concentric LVH, trace MR, mild eccentric TR, PAP 32 mmHg
Plan:
He continues to do very well status post CABG
Remains in sinus rhythm
Wires have been removed the chest tube remains in place
Discussed with CT surgery PA
Progress Note - Pattern Chart Writer
Subjective
Date of Service: May 28, 2024
No complaints.
Objective
Labs:
05/28/24 04:42
05/28/24 04:42
Labs
Hgb 9.2 g/dL (13.0-18.0) L 05/28/24 04:42
Hct 26.6 % (39.0-52.0) L 05/28/24 04:42
Plt Count 144 10^3/uL (130-400) D 05/28/24 04:42
PT 18.6 Sec (11.4-14.6) H 05/26/24 12:08
INR 1.57 05/26/24 12:08
APTT 32.2 Sec (23.4-35.0) 05/26/24 12:08
Sodium 135 mmol/L (135-145) 05/28/24 04:42
Potassium 4.0 mmol/L (3.5-5.1) 05/28/24 04:42
BUN 36 mg/dl (9-20) H 05/28/24 04:42
Creatinine 0.9 mg/dL (0.7-1.3) 05/28/24 04:42
Glucose 94 mg/dl (70-99) 05/28/24 04:42
Vital Signs and I&O:
Vital Signs
Temp Pulse Resp BP Pulse Ox
98.3 F 62 18 87/51 95
05/28/24 07:51 05/28/24 07:29 05/28/24 07:51 05/28/24 07:29 05/28/24 09:33
Vital Signs
Temp Pulse Resp BP Pulse Ox
98.3 F 62 18 87/51 95
05/28/24 07:51 05/28/24 07:29 05/28/24 07:51 05/28/24 07:29 05/28/24 09:33
Intake & Output
05/26/24 05/27/24 05/28/24 05/29/24
06:59 06:59 06:59 06:59
Intake Total 1931.7 / 1931.7 622.8 / 622.8 110 / 110
Output Total 1580 / 1580 645 / 645 110 / 110
Balance 351.7 / 351.7 -22.2 / -22.2 0 / 0
Physical Exam
Physical Exam
General: Well developed, well nourished in NAD.
Neck: Supple, no JVD, HJR, carotids +2 B/L, no bruits bilaterally.
Heart: Non displaced PMI, RRR, no murmurs, No S3, S4, no rubs.
Lungs: Scattered rhonchi
Sternal dressings noted
Extremities: No clubbing, cyanosis or edema bilaterally.
Neuro: Grossly nonfocal, awake, alert and oriented x3.
--- NOTE | 2024-05-28 11:47 | PTCARENOTE ---
NSR on monitor and VSS; Mediastinal chest tubes x2 and Right, Left Pleural chest tubes removed per order; pt resting comfortably in chair and assessment unchanged.
[2024-05-28] MEDS: FLOMAX PO (11:55)
[2024-05-28] MEDS: FERRLECIT 110 MG IV (13:08)
[2024-05-28] MEDS: NSS 500 IV (19:49)
--- NOTE | 2024-05-28 20:00 | PTCARENOTE ---
Received pt from dayshift; pt resting comfortably in chair, was assisted back to bed; pt is AAOx4, denies pain; NSR on monitor, VSS; heart sounds audible, radial and DP pulses palpable, no edema noted; lungs clear but diminished at b/l bases, spo2
95 on RA; + BS x4 quadrants, abdomen soft non tender; pt voiding clear yellow urine; surgical sites maintained; right IJ cordis and PIV maintained; call jackson within reach; will continue to monitor.
[2024-05-29] VITALS (15 sets, daily range): BP systolic 89–126; BP diastolic 49–61; PULSE 58; O2SAT 92; BMI 26.1
--- NOTE | 2024-05-29 | PTCARENOTE ---
Pt assessment unchanged; pt resting comfortably in bed; NSR on monitor, VSS; call jackson within reach; will continue to monitor.
--- NOTE | 2024-05-29 04:00 | PTCARENOTE ---
Pt assessment unchanged; NSR on monitor, VSS; pt resting comfortably in bed; call jackson within reach; will continue to monitor.
[2024-05-29 04:09] LABS: Hemoglobin 8.5 g/dL (13.0-18.0); Mean Corpuscular Volume 83.9 fL (80.0-94.0); Mean Platelet Volume 10.2 fL (7.4-10.4); Platelet Count 143 10^3/uL (130-400); Red Blood Cell Count 2.74 10^6/uL (4.70-6.10); Red Cell Dist. Width 12.5 % (11.5-14.5); White Blood Cell Count 7.1 10^3/uL (4.8-10.8)
[2024-05-29 04:23] LABS: Blood Urea Nitrogen 25 mg/dl (9-20); Calcium 8.6 mg/dl (8.4-10.2); Carbon Dioxide 30 mmol/L (22-30); Chloride 102 mmol/L (98-107); Estimated Creatinine Clearance 82 ml/min; Glucose 95 mg/dl (70-99); Magnesium 2.1 mg/dl (1.6-2.3); Potassium 3.9 mmol/L (3.5-5.1); Sodium 136 mmol/L (135-145); eGFR > 60.00
[2024-05-29] MEDS: ROXICODONE 5 MG PO (04:39)
[2024-05-29] MEDS: KCL 20 MEQ PO (05:07)
[2024-05-29] MEDS: TYLENOL 1000 MG PO ×3 (05:08→20:59)
--- NOTE | 2024-05-29 05:11 | W.PN.CT ---
Today's Communication / Plan
-
-pod #3
-no issues overnight
-BP improved with 25% Albumin and Ca, walked without dizziness - will resume low-dose BB
-will hold Flomax as urinary retention appears resolved
-wt is elevated from preop - consider diuresis if BP tolerates
-gave 20 po KCL
-encourage IS, OOB, ambulate
Assessment / Plan
-
- Mv-CAD - s/p CABG x4 (In situ SIMMONS to LAD sequential to distal bifurcation�diagonal, Ao to RSVG to OM, Ao to RSVG to distal RCA) on 05/26/[address] Gallardo, pod #3
- Intraop CALLI: LVEF 60% pre and post, no wma, no significant valvular dz
- CAD with RCA stent 2021
- Hyperlipidemia
- Hypertension
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
- Former smoker, uses e-cigarettes
- Mild chronic interstitial lung dz - follows with Dr. Vail (last CT 05/15/24)
- GERD
- History of COVID-19 and pneumonia
- Acute postop blood loss anemia - stable without transfusion
- Acute postop atelectasis
- Acute postop hypovolemia with subsequent hypervolemia
- Acute postop brief 7 beat SVT (asymptomatic)
- Acute postop urinary retention - improved with Flomax
Discussed patient care with: Nursing and Care Team
Subjective
Procedure
- s/p CABG x4 (In situ SIMMONS to LAD sequential to distal bifurcation�diagonal, Ao to RSVG to OM, Ao to RSVG to distal RCA) on 05/26/[address] Gallardo
-
Date of Service: May 29, 2024
Objective Data
-
PT 18.6 Sec (11.4-14.6) H 05/26/24 12:08
INR 1.57 05/26/24 12:08
APTT 32.2 Sec (23.4-35.0) 05/26/24 12:08
Vital Signs
Vital Signs
Temp Pulse Resp BP Pulse Ox
98.9 F 69 12 109/53 93
05/29/24 00:00 05/29/24 00:04 05/29/24 00:00 05/29/24 00:04 05/29/24 00:04
CT Intake/Output/Weight
05/28/24 05/28/24 05/29/24
06:59 18:59 06:59
Intake Total 100 / 622.8 230 / 230
Output Total 425 / 645 110 / 885 775 / 885
Balance -325 / -22.2 120 / -655 -775 / -655
SaO2: 93
Physical Exam
-
General: Awake and AOx3
Cardiovascular: Regular rate & rhythm, No Murmurs and No Rub
Respiratory: Decreased Breath Sounds
Sternum: Stable
Incision: Clean, Dry and Intact
Extremities: Edema +1
Data Reviewed
-
Lab Results: Results Reviewed
Medications: Active Meds Reviewed
Chest X-Ray: Report Reviewed and Image Reviewed
ECG: Report Reviewed and Image Reviewed
--- NOTE | 2024-05-29 07:41 | W.PN.CARDCBS ---
Addendum entered and electronically signed by Adrian Parisi MD 05/29/24 13:26:
Patient relatively bradycardic and hypotensive, amiodarone and metoprolol are on hold. Currently sitting in chair, comfortable, ambulating without assistance.
PMH/PSH/SH/FH: Reviewed
Allergies: None
Outpatient meds: Reviewed
ROS: Negative except as above
Current meds: Reviewed as noted above metoprolol and amiodarone currently on hold, tamsulosin also on hold
ROS: Negative except as above
104/54, pulse 56, head neck exam unremarkable, left leg incision, sternal incision intact, lungs clear regular rate and rhythm no rub abdomen benign, tubes out extremities without edema neuro nonfocal
Chest x-ray, slight blunting in bases left greater than right
EKG yesterday: Reviewed
Hemoglobin 8.5, platelets are 143, BUN/creatinine 25 and 0.8 with a potassium of 3.9
Assessment:
CAD
s/p RCA PCI 05/2022
s/p CABG x4 In situ SIMMONS to LAD sequential to distal bifurcation�diagonal, Ao to RSVG to OM, Ao to RSVG to distal RCA 05/26/24
HLD
HTN
ILD
GERD
History of suspected long covid
Former smoker
ECHO 07/24/23: EF 60 to 65%, mild concentric LVH, trace MR, mild eccentric TR, PAP 32 mmHg
Plan:
Doing well postop day 2
Continue supportive care
Discharge planning
Original Note:
Today's Communication / Plan
-
Follow orthostatics/dizziness with ambulation
Continue postop care
Impression / Plan
-
Primary Terminal Gauger: Dr. King
Assessment:
CAD
s/p RCA PCI 05/2022
s/p CABG x4 In situ SIMMONS to LAD sequential to distal bifurcation�diagonal, Ao to RSVG to OM, Ao to RSVG to distal RCA 05/26/24
HLD
HTN
ILD
GERD
History of suspected long covid
Former smoker
ECHO 07/24/23: EF 60 to 65%, mild concentric LVH, trace MR, mild eccentric TR, PAP 32 mmHg
Plan:
-Status post CABG x4 on 05/26/24
-He is noted to have some dizziness and orthostasis upon standing. Was given albumin this morning. Will reassess ortho VS later today. May need to consider compression stockings or possibly midodrine if continues. Also for IV Lasix this morning
per CT surgery
-Remains in sinus rhythm on review of telemetry overnight. Continue amiodarone. Beta-tarsha on hold with relative hypotension
-was on norvasc 2.5mg daily and toprol 12.5mg daily prior to admission
-has prior RCA PCI in 2021. on asa, plavix. hgb 8.5
-continue OOB/IS as able
-d/w nursing
Progress Note - Terminal Gauger
Subjective
Date of Service: May 29, 2024
Reports some dizziness upon standing
Objective
Labs:
05/29/24 03:51
05/29/24 03:51
Labs
Hgb 8.5 g/dL (13.0-18.0) L 05/29/24 03:51
Hct 23.0 % (39.0-52.0) L 05/29/24 03:51
Plt Count 143 10^3/uL (130-400) 05/29/24 03:51
PT 18.6 Sec (11.4-14.6) H 05/26/24 12:08
INR 1.57 05/26/24 12:08
APTT 32.2 Sec (23.4-35.0) 05/26/24 12:08
Sodium 136 mmol/L (135-145) 05/29/24 03:51
Potassium 3.9 mmol/L (3.5-5.1) 05/29/24 03:51
BUN 25 mg/dl (9-20) H 05/29/24 03:51
Creatinine 0.8 mg/dL (0.7-1.3) 05/29/24 03:51
Glucose 95 mg/dl (70-99) 05/29/24 03:51
Vital Signs and I&O:
Vital Signs
Temp Pulse Resp BP Pulse Ox
98.8 F 68 12 107/61 93
05/29/24 04:00 05/29/24 04:00 05/29/24 04:00 05/29/24 04:00 05/29/24 04:00
Vital Signs
Temp Pulse Resp BP Pulse Ox
98.8 F 68 12 107/61 93
05/29/24 04:00 05/29/24 04:00 05/29/24 04:00 05/29/24 04:00 05/29/24 04:00
Intake & Output
05/26/24 05/27/24 05/28/24 05/29/24
07:59 07:59 07:59 07:59
Intake Total 1942.1 / 1942.1 722.4 / 722.4 120 / 120
Output Total 1605 / 1605 730 / 730 1000 / 1000
Balance 337.1 / 337.1 -7.6 / -7.6 -880 / -880
Physical Exam
Physical Exam
GEN: No distress, awake, alert, oriented x3. Sitting in chair
HEENT: supple, anicteric, mmm, EOMI
LUNGS: B/L, no wheezes
CV: Reg, S1/S2, no murmur
EXT: No cyanosis, clubbing. Trace edema of bilateral lower extremity
NEURO: Gross non-focal
SKIN: Warm, pink, dry. No rash. Sternotomy incision C/D/I.
--- NOTE | 2024-05-29 08:00 | PTCARENOTE ---
Received pt from restaurant shift leader RN; pt AAOX3 and resting comfortably in chair; NSR on monitor and VSS; RIJ Cordis and PIV x1 patent; lungs diminished; IS to 1750; positive bowel sounds; pt voiding yellow urine; palpable pulses throughout; +1
generalized edema; all surgical sites C/D/I; see nursing documentation for further details.
[2024-05-29] MEDS: ZOFRAN 4 MG IV (08:13)
[2024-05-29] MEDS: LOPRESSOR 12.5 MG PO (08:15)
[2024-05-29] MEDS: PLAVIX 75 MG PO (08:15)
[2024-05-29] MEDS: THERAGRAN 1 TABLET PO (08:15)
[2024-05-29] MEDS: VITAMIN C 500 MG PO (08:15)
[2024-05-29] MEDS: PROTONIX 40 MG PO (08:15)
[2024-05-29] MEDS: MAGNESIUM OXIDE 500 MG PO ×2 (08:15→20:59)
[2024-05-29] MEDS: FEOSOL 325 MG PO (08:15)
[2024-05-29] MEDS: LOW STRENGTH ASPIRIN 81 MG PO (08:15)
[2024-05-29] MEDS: NEURONTIN 100 MG PO ×3 (08:15→20:59)
[2024-05-29] MEDS: SENOKOT-S 1 TABLET PO ×2 (08:15→20:59)
[2024-05-29] MEDS: LIPITOR 80 MG PO (08:18)
[2024-05-29] MEDS: PACERONE 200 MG PO ×2 (08:18→20:59)
[2024-05-29] MEDS: BACTROBAN 2% OINTMENT 1 APPLIC NASAL ×2 (08:19→21:00)
[2024-05-29] MEDS: LIDOCAINE 4% PATCH TOPICAL (08:19)
[2024-05-29] MEDS: LASIX 20 MG IV (11:27)
--- NOTE | 2024-05-29 11:30 | PTCARENOTE ---
Sinus Bradycardia on monitor and VSS; assessment unchanged and pt resting comfortably in chair.
--- NOTE | 2024-05-29 11:53 | CM ---
Chart reviewed. Patient OOB ambulating the taylor. Patient is independent of ADLS, lives alone in a 1 STH, 0 MESHA, 0 DME. Patient with a supportive son who will be staying with the patient after discharge. Patient also with a supportive sister who
lives in the community. Plan is for the patient to return with CT Transitional RN. CM to follow
[2024-05-29] MEDS: FERRLECIT 110 MG IV (15:28)
--- NOTE | 2024-05-29 16:11 | PTCARENOTE ---
NSR on monitor and VSS; assessment unchanged; pt ambulated in hallway with RN.
--- NOTE | 2024-05-29 20:00 | PTCARENOTE ---
assumed care of pt from previous RN. pt A&Ox4, resting in chair at time of assessment. SR on tele-monitor. palpable peripheral pulses. +1 pitting edema noted in b/l LE. POX 93% on RA. lungs clear to auscultation. abd s/n, +BS. pt voiding clear,
yellow urine in urinal. all surgical sites stable, CDI. see worklist for complete nursing assessment, interventions, VS, and I&Os.
[2024-05-29] MEDS: NSS IV (20:59)
[2024-05-29] MEDS: LOPRESSOR PO (21:01)
[2024-05-30] VITALS (8 sets, daily range): BP systolic 106–133; BP diastolic 55–68; PULSE 71; O2SAT 93; BMI 25.7
--- NOTE | 2024-05-30 | PTCARENOTE ---
assessment remains unchanged. VSS.
[2024-05-30 04:39] LABS: Ionized Calcium 1.17 mMOL/L (1.15-1.33)
[2024-05-30 04:53] LABS: Hematocrit 25.2 % (39.0-52.0); Hemoglobin 9.2 g/dL (13.0-18.0); Mean Corp Hgb Conc. 36.5 g/dL (33.0-37.0); Mean Corpuscular Hgb 30.6 pg (27.0-31.0); Mean Corpuscular Volume 83.7 fL (80.0-94.0); Mean Platelet Volume 9.9 fL (7.4-10.4); Platelet Count 171 10^3/uL (130-400); Red Blood Cell Count 3.01 10^6/uL (4.70-6.10); Red Cell Dist. Width 12.5 % (11.5-14.5); White Blood Cell Count 6.7 10^3/uL (4.8-10.8)
--- NOTE | 2024-05-30 04:53 | W.PN.CT ---
Today's Communication / Plan
-
-No major issues overnight. Hemodynamically and neurologically intact
-Off all drips
-Held Metoprolol tartrate last night d/t soft BP. Resuming home dose 12.5 mg QD of Metoprolol succinate today
-Cont. current meds (ASA, Plavix, Amiodarone, Lipitor, Lasix, Toprol XL)
-Cont. diuresis, wt was up 12 lbs from preop yesterday, check wt today, diuresed 3600 mL/24hrs. Minimize fluid intake
-H/H stable @ 9.2/25.2, likely partly hemodilutional
-F/U 2-view cxr
-OOB into chair/Ambulate
-Home today
Assessment / Plan
-
Assessment:
- Mv-CAD - s/p CABG x4 (In situ SIMMONS to LAD sequential to distal bifurcation�diagonal, Ao to RSVG to OM, Ao to RSVG to distal RCA) on 05/26/[address] Gallardo, pod #4
- Intraop CALLI: LVEF 60% pre and post, no wma, no significant valvular dz
- CAD with RCA stent 2021
- Hyperlipidemia
- Hypertension
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
- Former smoker, uses e-cigarettes
- Mild chronic interstitial lung dz - follows with Dr. Vail (last CT 05/15/24)
- GERD
- History of COVID-19 and pneumonia
- Acute postop blood loss anemia - stable without transfusion
- Acute postop atelectasis
- Acute postop hypovolemia with subsequent hypervolemia
- Acute postop brief 7 beat SVT (asymptomatic)
- Acute postop urinary retention - improved with Flomax
Discussed patient care with: Cardiology, Nursing, Respiratory Therapy, Pharmacy and Care Team
Subjective
Procedure
- s/p CABG x4 (In situ SIMMONS to LAD sequential to distal bifurcation�diagonal, Ao to RSVG to OM, Ao to RSVG to distal RCA) on 05/26/[address] Gallardo
-
Date of Service: May 30, 2024
Pt c/o mild incisional pain, otherwise feels well. Ambulating halls without difficulty
Objective Data
-
PT 18.6 Sec (11.4-14.6) H 05/26/24 12:08
INR 1.57 05/26/24 12:08
APTT 32.2 Sec (23.4-35.0) 05/26/24 12:08
Vital Signs
Vital Signs
Temp Pulse Resp BP Pulse Ox
98.7 F 67 16 121/68 93
05/30/24 04:00 05/30/24 04:18 05/30/24 04:00 05/30/24 04:18 05/30/24 04:00
CT Intake/Output/Weight
05/29/24 05/29/24 05/30/24
06:59 18:59 06:59
Intake Total 120 / 120
Output Total 1000 / 1110 1750 / 3375 1625 / 3375
Balance -1000 / -880 -1630 / -3255 -1625 / -3255
SaO2: 93 (RA)
Physical Exam
-
General: Awake, Oriented and AOx3
Cardiovascular: Regular rate & rhythm, No Murmurs, No Rub and No Gallop
Respiratory: Decreased Breath Sounds
Sternum: Stable
Incision: Clean, Dry, Intact and Dressing Intact
Extremities: Other (+trace edema)
Data Reviewed
-
Lab Results: Results Reviewed
Medications: Active Meds Reviewed
Chest X-Ray: Report Reviewed and Image Reviewed
ECG: Report Reviewed and Image Reviewed
[2024-05-30 05:18] LABS: Blood Urea Nitrogen 20 mg/dl (9-20); Calcium 8.7 mg/dl (8.4-10.2); Carbon Dioxide 27 mmol/L (22-30); Chloride 105 mmol/L (98-107); Estimated Creatinine Clearance 73 ml/min; Glucose 94 mg/dl (70-99); Magnesium 2.2 mg/dl (1.6-2.3); Potassium 4.1 mmol/L (3.5-5.1); Sodium 139 mmol/L (135-145); eGFR > 60.00
[2024-05-30] MEDS: KCL ELIXIR 40 MEQ PO (06:32)
[2024-05-30] MEDS: CALCIUM GLUCONATE 100 IV (06:32)
[2024-05-30] MEDS: LASIX 20 MG IV (06:32)
[2024-05-30] MEDS: TYLENOL 1000 MG PO (06:33)
--- NOTE | 2024-05-30 08:28 | PTCARENOTE ---
Received patient for 7A-7P shift. Pt AAOx3, without complaints. NSR on monitoring tech, VSS. Medications administered as ordered. Pt for possible discharge today.
[2024-05-30] MEDS: TOPROL XL 12.5 MG PO (08:34)
[2024-05-30] MEDS: VITAMIN C 500 MG PO (08:34)
[2024-05-30] MEDS: NEURONTIN 100 MG PO (08:34)
[2024-05-30] MEDS: PROTONIX 40 MG PO (08:34)
[2024-05-30] MEDS: LIPITOR 80 MG PO (08:34)
[2024-05-30] MEDS: FEOSOL 325 MG PO (08:34)
[2024-05-30] MEDS: MAGNESIUM OXIDE 500 MG PO (08:34)
[2024-05-30] MEDS: LOW STRENGTH ASPIRIN 81 MG PO (08:34)
[2024-05-30] MEDS: PLAVIX 75 MG PO (08:34)
[2024-05-30] MEDS: THERAGRAN 1 TABLET PO (08:35)
[2024-05-30] MEDS: PACERONE 200 MG PO (08:35)
[2024-05-30] MEDS: SENOKOT-S 1 TABLET PO (08:35)
[2024-05-30] MEDS: BACTROBAN 2% OINTMENT 1 APPLIC NASAL (08:35)
[2024-05-30] MEDS: LIDOCAINE 4% PATCH TOPICAL (08:49)
--- NOTE | 2024-05-30 09:01 | W.DCSUMMARY ---
Discharge Summary
Discharge Data
Date of Admission: 05/26/24
Date of Discharge: 05/30/24
Total time spent discharging patient (in min): 60
-
Pending Results: No
Hospital Course
Patient was admitted electively and underwent coronary artery bypass grafting with Dr. Carl Gallardo on 05/26/2024. Please refer to his separately dictated operative report for complete details. Postoperatively the patient progressed well. He was
transferred to the ICU in stable condition on low-dose Levophed support. He was extubated per protocol at 1805 on postop day #0. He was weaned from vasopressor support overnight.
Postoperative day #1: Invasive monitoring lines were removed. Patient was gently hydrated with lactated Ringer's due to hypotension. Flomax was started for urinary retention later in the day. He started working with therapy and continued to
progress. He was weaned from oxygen successfully.
Postoperative day #2: Patient remains somewhat hypotensive today. Calcium and albumin were repleted. Patient wire and chest tubes were removed. Beta-blockers and Flomax were held due to hypotension.
Postoperative day #3: Patient remains borderline hypotensive and beta-blockers continue to be held. Gentle diuresis was started with excellent response. He otherwise continued progress
Postoperative day #4: Patient was restarted on his home dose of Toprol XL 12.5 mg daily. He is cleared for discharge today following a two-view chest x-ray. I did send a prescription for oxycodone in case he does need it, however he was not taking
this in the hospital. We will not discharge the patient on Flomax due to hypotension. He will receive 7 days worth of 40 mg of oral Lasix with potassium replacement. Home Norvasc was held at discharge.
Discharge Plan
-
Patient Disposition: Home (Routine Discharge)
Discharge Diagnosis/Procedures: - Multivessel coronary artery disease-status post coronary artery bypass grafting x4 (In situ left internal mammary artery to left anterior descending sequential to distal bifurcation�diagonal, aorta to reversed
saphenous vein graft to obtuse marginal, aorta to reversed saphenous vein graft to distal right coronary artery) on 05/26/[address] Gallardo
- Intraoperative transesophageal echocardiogram: Left ventricular ejection fraction 60% pre and post, no wall motion abnormalities, no significant valvular disease
- Coronary artery disease with right coronary artery stent 2021
- Hyperlipidemia
- Hypertension
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
- Former smoker, uses e-cigarettes
- Mild chronic interstitial lung disease- follows with Dr. Vail (last CT 05/15/24)
- Gastroesophageal reflux disease
- History of COVID-19 and pneumonia
- Acute postoperative blood loss anemia - stable without transfusion
- Acute postoperative atelectasis
- Acute postoperative hypovolemia with subsequent hypervolemia
- Acute postoperative brief 7 beat supraventricular tachycardia (asymptomatic)
- Acute postoperative urinary retention - improved with Flomax
Condition: Good
Diet: Low Cholesterol and Low Sodium
Activity: No strenuous activity
Driving Restrictions: Not until seen by your Dr
Bathing Restrictions: OK to Shower
Other Services: Cardiac Rehab
Specialty Instructions: Weigh Daily- Call MD for wt gain/loss 3 lbs overnight/5 lbs in 1 week
Activity Restrictions/Additional Instructions:
ACTIVITY:
-No strenuous activity: no heavy lifting, pushing, pulling anything over 15 pounds for one month
-continue to use stairs as tolerated
DRIVING RESTRICTIONS:
-No driving for one month or until approved by your surgeon
WOUND CARE:
-Shower daily. Use soap & water.
-No lotions, creams or powders on incision area.
DIET:
-continue a low fat/low cholesterol diet.
-IF you are diabetic, continue carb controlled diet.
CARDIAC REHAB:
-Please make appointment to start in 5-6 weeks with your local hospital program. (See Cardiac Rehabilitation Discharge Booklet).
SPECIALTY INSTRUCTIONS:
-Weigh yourself daily. Call your physician for any weight gain/loss of 3 lbs overnight or 5 lbs in one week.
-REPORT any clicking noise or uneven appearance of your sternum to your surgeon immediately.
-If you smoke, you are instructed to quit. The [facility] smoking hotline phone number is [phone]
Referrals:
CT Transitional Care Nurse [Outside] (The Cardiothoracic Transitional Care Nurse will call you to set up a visit in 1-2 days.)
[facility]. Cardiac Rehab [Outside] - 07/06/24 1:00 pm
(Cardiac Rehab Orientation appointment is on 07/06/24 at 1:00 pm
The Cardiac Rehab gym is located on the first floor of the [facility].)
Edelmira Samuel PA-C [Specified Professional Personl] - 07/08/24 2:00 pm
Edda Hudson PA-C [Family Provider] -
Carl Gallardo MD [Active] - 07/02/24 12:30 pm
Prescriptions:
New
furosemide 40 mg Tablet
40 mg PO DAILY 7 Days Qty: 7 0RF
acetaminophen 325 mg Tablet
650 mg PO Q4HPRN PRN (Reason: mild pain,headache,temp >101F ) Qty: 30 0RF
potassium chloride 20 mEq Tablet,Er Particles/Crystals
20 meq PO DAILY 7 Days Qty: 7 0RF
oxycodone 5 mg tablet
5 mg PO Q6HPRN PRN (Reason: pain) Qty: 24 0RF
Continued
Centrum 1 EACH tablet
1 ea PO DAILY
metoprolol succinate 25 mg Tablet Extended Release 24 Hr
12.5 mg PO DAILY
omega-3 fatty acids-fish oil [Fish Oil] 360-1,200 mg Capsule
1 cap PO DAILY
clopidogrel 75 mg Tablet
75 mg PO DAILY Qty: 90 5RF
Hold Instructions: Hold until seen by CT surgery
atorvastatin 80 mg Tablet
80 mg PO DAILY
aspirin 81 MG tablet,delayed release (DR/EC)
81 mg PO DAILY
Discontinued
amlodipine 2.5 mg tablet
2.5 mg PO DAILY
Discharge Orders:
Discharge Patient (As Directed); Ordered 05/30/24
Ordered By: Thom Cano
Care Plan Goals
Care Plan Goals:
Problem: Readiness for enhanced knowledge related to diagnosis and treatment plan
Goal: Understand your diagnosis and treatment plan needs, including medications if applicable.
Instructions: Know your diagnosis, underlying causes and treatment plan options, including medications if applicable. Consult with your health care team to learn about your diagnosis and treatment plan, including medications if applicable.
Discharge Date and Time
Print Language: UKRAINIAN
[2024-05-30] MEDS: KCL 20 MEQ PO (09:38)
[2024-05-30] MEDS: LASIX 40 MG PO (09:38)
--- NOTE | 2024-05-30 11:53 | PTCARENOTE ---
Patient discharged with heart pillow, IS and belongings at 1150 via wheelchair by RN escort without issues. Pt and his son present for discharge instructions, read back by patient and verbalized understanding. Pt showered, IV and telepack removed
prior to discharge, tolerated well.
== END 2024-05-30 11:50 | disposition home or self-care (01) | DRG 236 ==
LOC: CVICU 05:03
PROVIDERS: Anesthesiology; Clinical Nurse Specialist Acute Care; Physician Assistant Medical; ADMITTING PHYSICIAN Thoracic Surgery (Cardiothoracic Vascular Surgery); CONSULT PHYSICIAN Internal Medicine Critical Care Medicine; FAMILY PHYSICIAN Physician Assistant Medical
PROC: 03B00ZZ Excision of Right Internal Mammary Artery, Open Approach (ICD-10-PCS; 2024-05-26)
PROC: 021209W Bypass Coronary Artery, Three Arteries from Aorta with Autologous Venous Tissue, Open Approach (ICD-10-PCS; 2024-05-26)
PROC: 02100Z9 Bypass Coronary Artery, One Artery from Left Internal Mammary, Open Approach (ICD-10-PCS; 2024-05-26)
PROC: 5A1221Z Performance of Cardiac Output, Continuous (ICD-10-PCS; 2024-05-26)
PROC: 06BQ4ZZ Excision of Left Saphenous Vein, Percutaneous Endoscopic Approach (ICD-10-PCS; 2024-05-26)
PROC: B24BZZ4 Ultrasonography of Heart with Aorta, Transesophageal (ICD-10-PCS; 2024-05-26)
DX: I25.118 Atherosclerotic heart disease of native coronary artery with other forms of angina pectoris (principal); J84.9 Interstitial pulmonary disease, unspecified; D62 Acute posthemorrhagic anemia; J98.11 Atelectasis; I47.10 Supraventricular tachycardia, unspecified; E87.20 Acidosis, unspecified; I95.9 Hypotension, unspecified; I77.810 Thoracic aortic ectasia; E86.1 Hypovolemia; E87.70 Fluid overload, unspecified; N99.89 Other postprocedural complications and disorders of genitourinary system; Y83.2 Surgical operation with anastomosis, bypass or graft as the cause of abnormal reaction of the patient, or of later complication, without mention of misadventure at the time of the procedure; I10 Essential (primary) hypertension; K21.9 Gastro-esophageal reflux disease without esophagitis; I44.4 Left anterior fascicular block; E78.00 Pure hypercholesterolemia, unspecified; Z79.02 Long term (current) use of antithrombotics/antiplatelets; Z79.82 Long term (current) use of aspirin; Z79.899 Other long term (current) drug therapy; Z82.49 Family history of ischemic heart disease and other diseases of the circulatory system; Z86.16 Personal history of COVID-19; Z87.891 Personal history of nicotine dependence; Z95.5 Presence of coronary angioplasty implant and graft
CPT/HCPCS: 36415; 71045; 71046; 71250; 80048; 80053; 81003; 81015; 82248; 82330; 82565; 82805; 82810; 82947; 82962; 83036; 83735; 84132; 84302; 84520; 85014; 85018; 85025; 85027; 85049; 85610; 85730; 86850; 86900; 86901; 86920; 87070; 93005; 93312; 93320; 93325; 93880; 94002; J2597; J2916; P9045; P9047

== ENCOUNTER → 2024-07-02 14:24 | Outpatient (REF) | payer MEDICARE, BC, SELFPAY | LOC: RAD 14:24 | PROVIDERS: ATTENDING PHYSICIAN Thoracic Surgery (Cardiothoracic Vascular Surgery); FAMILY PHYSICIAN Physician Assistant Medical | DX: Z95.1 Presence of aortocoronary bypass graft (principal); R60.0 Localized edema | CPT/HCPCS: 93971 ==

== ENCOUNTER 2024-07-24 06:49 | Outpatient (RCR) | payer BC, SELFPAY | END 2024-07-24 23:59 | disposition home or self-care (01) | LOC: CRHB 06:49 | PROVIDERS: ATTENDING PHYSICIAN Internal Medicine Cardiovascular Disease; FAMILY PHYSICIAN Family Medicine | DX: I25.10 Atherosclerotic heart disease of native coronary artery without angina pectoris (principal); Z95.1 Presence of aortocoronary bypass graft | CPT/HCPCS: 93798 ==

== ENCOUNTER 2024-08-24 09:00 | Outpatient (RCR) | payer BC, SELFPAY | END 2024-08-24 23:59 | disposition home or self-care (01) | LOC: CRHB 09:00 | PROVIDERS: ATTENDING PHYSICIAN Internal Medicine Cardiovascular Disease; FAMILY PHYSICIAN Family Medicine | DX: Z95.1 Presence of aortocoronary bypass graft (principal) | CPT/HCPCS: 93798; G0422 ==

== ENCOUNTER 2024-09-23 08:46 | Outpatient (RCR) | payer BC, SELFPAY | END 2024-09-23 23:59 | disposition home or self-care (01) | LOC: CRHB 08:46 | PROVIDERS: ATTENDING PHYSICIAN Internal Medicine Cardiovascular Disease; FAMILY PHYSICIAN Family Medicine | DX: I25.10 Atherosclerotic heart disease of native coronary artery without angina pectoris (principal); Z95.1 Presence of aortocoronary bypass graft | CPT/HCPCS: 93798 ==

== ENCOUNTER 2024-09-28 08:45 | Outpatient (RCR) | payer BC, SELFPAY | END 2024-09-28 23:59 | disposition home or self-care (01) | LOC: CRHB 08:45 | PROVIDERS: ATTENDING PHYSICIAN Internal Medicine Cardiovascular Disease; FAMILY PHYSICIAN Family Medicine | DX: I25.10 Atherosclerotic heart disease of native coronary artery without angina pectoris (principal); Z95.1 Presence of aortocoronary bypass graft | CPT/HCPCS: 93797; 93798 ==

== ENCOUNTER → 2024-12-05 09:35 | Outpatient (REF) | payer BC, MEDICARE, SELFPAY | LOC: RAD 09:35 | PROVIDERS: ATTENDING PHYSICIAN Internal Medicine Cardiovascular Disease; FAMILY PHYSICIAN Physician Assistant Medical | DX: Z13.6 Encounter for screening for cardiovascular disorders (principal) | CPT/HCPCS: 76770 ==

== ENCOUNTER → 2024-12-10 11:02 | Outpatient (REF) | payer BC, SELFPAY | LOC: HWRCS 11:02 | PROVIDERS: ATTENDING PHYSICIAN Internal Medicine Cardiovascular Disease; FAMILY PHYSICIAN Physician Assistant Medical | DX: I27.20 Pulmonary hypertension, unspecified (principal); I25.10 Atherosclerotic heart disease of native coronary artery without angina pectoris; Z95.1 Presence of aortocoronary bypass graft; R94.31 Abnormal electrocardiogram [ECG] [EKG] | CPT/HCPCS: 93306 ==

== ENCOUNTER → 2025-06-22 10:51 | Outpatient (REF) | payer BC, SELFPAY | LOC: HWRAD 10:51 | PROVIDERS: ATTENDING PHYSICIAN Internal Medicine Critical Care Medicine; FAMILY PHYSICIAN Physician Assistant Medical | DX: Z87.891 Personal history of nicotine dependence (principal) | CPT/HCPCS: 71271 ==